=== PATIENT | male | born 1970 | race Caucasian/White ===

== ENCOUNTER 2021-02-21 23:59 | Emergency (ER) | payer MEDICARE, MEDICAID, SELFPAY ==
--- NOTE | 2021-02-22 00:11 | ECG_ITS ---
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 Measurements Intervals Tiller Rate: 70 P: 16 UT: 148 QRS: -9 QRSD: 93 T: 31 QT: 350 QTc: 378 Interpretive Statements SINUS RHYTHM WITH OCCASIONAL VENTRICULAR PREMATURE COMPLEXES NONSPECIFIC T-WAVE ABNORMALITY No previous ECG available for comparison Electronically Signed On 02-22-2021 10:05:59 CDT by Leena Clifton M.D. [id number]
[2021-02-22 00:22] VITALS: BP 134/70; PULSE 68; RESP 18; TEMP 36.7; O2SAT 98; BMI 37.2
--- NOTE | 2021-02-22 00:25 | XRR_ITS ---
PROCEDURE INFORMATION: Exam: XR Chest Exam date and time: 02/22/2021 12:25 AM Age: 50 years old Clinical indication: Other: Overdose; Additional info: Od TECHNIQUE: Imaging protocol: XR of the chest. Views: 1 view. COMPARISON: No relevant prior studies available. FINDINGS: Lungs: Unremarkable. No consolidation. Pleural spaces: Unremarkable. No pleural effusion. No pneumothorax. Heart/Mediastinum: Unremarkable. No cardiomegaly. Bones/joints: Unremarkable. XR/XR chest 1V portable [id number] IMPRESSION: No acute findings.
--- NOTE | 2021-02-22 00:28 | W.ED.PSYCH ---
Documented by User: Caprice Amin MD 02/22/21 05:30 HPI - Psych General: Chief Complaint: Psychiatric Symptoms Stated Complaint: DRANK FLUID CLEANING Time Seen by Provider: 02/22/21 00:12 Source: patient and EMS Mode of arrival: EMS Limitations: no limitations History of Present Illness: HPI Narrative: 50-year-old male is here from group home has had a history of a stroke. He states that he is missing his and has not seen her in quite some time and drank bleach 2 hours ago an attempt to kill himself. He denies any shortness of breath. He has no salazar to his mouth or throat. He states that he is just very depressed and suicidal. Patient was sent here for psychiatric placement. He denies any other attempts recently. Associated symptoms: Reports suicidal ideation Review of Systems Const: Denies: fever(s), chills, body aches or change in appetite Eyes: Denies: blurry vision or eye discomfort ENMT: Denies: throat pain or dental pain Card: Denies: chest pain Resp: Denies: dyspnea GI: Denies: abdominal pain, nausea, vomiting or diarrhea : Denies: dysuria Musc: Denies: neck pain or back pain Skin/Breast: Denies: rash Neuro: Denies: headache(s) Psych: Reports: suicidal ideation Misael/Lymph: Denies: easy bruising All/Imm: Denies: urticaria Physical Exam Const: COMMON NORMALS: no acute distress, patient oriented x3 and healthy appearing HENMT: COMMON NORMALS: normocephalic and atraumatic HEAD & SCALP: normocephalic and atraumatic Eye: COMMON NORMALS: Equal, round and reactive pupils present and EOMs intact bilaterally PUPIL: Yes Equal, round and reactive pupils present Neck/C-Spine: COMMON NORMALS: full ROM and supple Chest: COMMONS NORMALS: normal inspection of the chest and normal palpation of entire chest wall Resp: COMMON NORMALS: normal respiratory effort, No retractions, No use of accessory muscles and clear to auscultation bilaterally AUSCULTATION: clear to auscultation bilaterally Cardio: COMMON NORMALS: regular rate, regular rhythm and No murmurs present (Cardio) RATE: regular rate RHYTHM: regular rhythm GI: COMMON NORMALS: Normal to inspection, nondistended, normoactive bowel sounds present, Soft to palpation, non-tender and no masses PALPATION: Yes Soft to palpation Extremity: COMMON NORMALS: normal to inspection and full ROM Neuro: COMMON NORMALS: patient oriented x3, moves all extremities and no focal motor deficits Psych: COMMON NORMALS: mental status grossly normal, Normal thought process present and cooperative THOUGHT PROCESS: Normal thought process present THOUGHT CONTENT: Yes Suicidality present Skin: COMMON NORMALS: no rashes or lesions noted and no wounds GENERAL SKIN EXAM: no rashes or lesions noted Course Vital Signs: Vital signs: Vital Signs Temperature 98 F 02/22/21 14:48 Pulse Rate 83 02/22/21 14:48 Respiratory Rate 16 02/22/21 14:48 Blood Pressure 118/84 02/22/21 14:48 Pulse Oximetry 98 02/22/21 14:48 MDM - Psych MDM Narrative: Medical decision making narrative: Patient presents here with suicidal ideation and did attempt to kill himself by drinking a duct cleaner. He has no signs of overdose no signs of salazar in his mouth his x-ray is normal. Are seeking placement at this time. Patient had been stable while in the ER. Patient's care turned over to Dr. Jacob. Lab Data: Labs: Lab Results 02/22/21 02/22/21 02/22/21 Range/Units 00:23 00:33 00:33 WBC 8.2 (4.0-10.0) 10^3/ uL RBC 4.25 (4.1-5.3) 10^6/u L Hgb 12.6 (11.7-16.6) g/dL Hct 38.2 L (42.0-52.0) % MCV 89.9 (80-94) fL MCH 29.6 (28.0-34.0) pg MCHC 33.0 (30.0-36.0) g/dL RDW 12.2 (12.1-15.1) % Plt Count 233 (130-400) 10^3/c mm MPV 8.7 (7.4-10.4) fL Neut % (Auto) 55.6 % Lymph % (Auto) 27.8 % [place] % (Auto) 12.9 % Eos % (Auto) 2.4 % Baso % (Auto) 0.7 % Neut # (Auto) 4.54 (1.8-7.7) 10^3/u L Lymph # (Auto) 2.3 (0.8-4.8) 10^3/u L [place] # (Auto) 1.1 H (0.2-0.9) 10^3/u L Eos # (Auto) 0.2 (0.0-0.8) 10^3/u L Baso # (Auto) 0.1 (0.0-0.1) 10^3/u L Nucleated RBC % (a uto) 0 % Nucleated RBCs # 0.0 /100WBC Sodium 136 (136-145) mmol/L Potassium 3.6 (3.5-5.1) mmol/L Chloride 100 (98-107) mmol/L Carbon Dioxide 26 (22-29) mmol/L Anion Gap 13.6 (5-19) BUN 20 (6-20) mg/dL Creatinine 1.5 H (0.7-1.2) mg/dL GFR Calculation 49.1 L (90-130) mL/min Glucose 118 H (65-115) mg/dL Calculated Osmolal ity 286 (285-295) mOsm/k g Calcium 9.6 (8.5-10.5) mg/dL Total Bilirubin 0.2 (0.15-1.2) mg/dL AST 13 (0-40) U/L ALT 15 (0-41) U/L Alkaline Phosphata se 72 (40-130) IU/L Total Protein 6.8 (6.6-8.7) g/dL Albumin 4.2 (3.5-5.2) g/dL Globulin 2.6 (1.3-4.6) g/dL Salicylates < 0.3 L (3-10) mg/dL Urine Opiates Scre en Negative (Negative) ng/mL Acetaminophen < 5.0 L (10-30) ug/mL Ur Barbiturates Sc reen Negative (Negative) ng/mL Ur Phencyclidine S crn Negative (Negative) ng/mL Ur Amphetamines Sc reen Negative (Negative) ng/mL U Benzodiazepines Scrn Negative (Negative) ng/mL Urine Cocaine Scre en Negative (Negative) ng/mL U Marijuana (THC) Screen Negative (Negative) ng/mL Ethyl Alcohol < 10 (0-10) mg/dL SARS-CoV-2 Ag (Rap id) (Negative) 02/22/21 Range/Units 00:33 WBC (4.0-10.0) 10^3/ uL RBC (4.1-5.3) 10^6/u L Hgb (11.7-16.6) g/dL Hct (42.0-52.0) % MCV (80-94) fL MCH (28.0-34.0) pg MCHC (30.0-36.0) g/dL RDW (12.1-15.1) % Plt Count (130-400) 10^3/c mm MPV (7.4-10.4) fL Neut % (Auto) % Lymph % (Auto) % [place] % (Auto) % Eos % (Auto) % Baso % (Auto) % Neut # (Auto) (1.8-7.7) 10^3/u L Lymph # (Auto) (0.8-4.8) 10^3/u L [place] # (Auto) (0.2-0.9) 10^3/u L Eos # (Auto) (0.0-0.8) 10^3/u L Baso # (Auto) (0.0-0.1) 10^3/u L Nucleated RBC % (a uto) % Nucleated RBCs # /100WBC Sodium (136-145) mmol/L Potassium (3.5-5.1) mmol/L Chloride (98-107) mmol/L Carbon Dioxide (22-29) mmol/L Anion Gap (5-19) BUN (6-20) mg/dL Creatinine (0.7-1.2) mg/dL GFR Calculation (90-130) mL/min Glucose (65-115) mg/dL Calculated Osmolal ity (285-295) mOsm/k g Calcium (8.5-10.5) mg/dL Total Bilirubin (0.15-1.2) mg/dL AST (0-40) U/L ALT (0-41) U/L Alkaline Phosphata se (40-130) IU/L Total Protein (6.6-8.7) g/dL Albumin (3.5-5.2) g/dL Globulin (1.3-4.6) g/dL Salicylates (3-10) mg/dL Urine Opiates Scre en (Negative) ng/mL Acetaminophen (10-30) ug/mL Ur Barbiturates Sc reen (Negative) ng/mL Ur Phencyclidine S crn (Negative) ng/mL Ur Amphetamines Sc reen (Negative) ng/mL U Benzodiazepines Scrn (Negative) ng/mL Urine Cocaine Scre en (Negative) ng/mL U Marijuana (THC) Screen (Negative) ng/mL Ethyl Alcohol (0-10) mg/dL SARS-CoV-2 Ag (Rap id) Negative (Negative) EKG Data^: EKG 1: Attestation: I personally reviewed and interpreted this EKG as follows: EKG interpretation date: 02/22/21 EKG interpretation time: 03:00 Interpretation: nsr hr [address] or t wave abnormalities qrs 93 qtc 371 Discharge Plan Discharge Patient Disposition: Xfer Psychiatric Hosp Clinical Impression: Suicidal ideation Condition: Stable Sign Out Sign Out Data: Patient Sign Out occurred on 02/22/21 at 05:58. Patient's care was discussed, and care was transferred from to Kenji Soto DO. Coding Level of Care Code ED Assembler Lat[employer] for Chg Fwd Exam Comprehensive Documented by User: Kenji Soto DO 02/22/21 15:18 HPI - Psych General: Chief Complaint: Psychiatric Symptoms Stated Complaint: DRANK FLUID CLEANING Time Seen by Provider: 02/22/21 00:12 Course Vital Signs: Vital signs: Vital Signs Temperature 98 F 02/22/21 14:48 Pulse Rate 83 02/22/21 14:48 Respiratory Rate 16 02/22/21 14:48 Blood Pressure 118/84 02/22/21 14:48 Pulse Oximetry 98 02/22/21 14:48 MDM - Psych MDM Narrative: Medical decision making narrative: Care assumed from Dr. Poole patient remained stable Dr. Gonzalez has seen the patient [facility] has excepted will transfer him. He is being transferred because medically he is not stable enough for our psychiatric floor he will need some assistance to the level of essentially a geriatric patient which is why he is at the group home. I have discussed with receiving facility they are geriatric so they are willing to take him on to these premises. See please see Dr. Gonzalez's notes. Lab Data: Labs: Lab Results 02/22/21 02/22/21 02/22/21 Range/Units 00:23 00:33 00:33 WBC 8.2 (4.0-10.0) 10^3/ uL RBC 4.25 (4.1-5.3) 10^6/u L Hgb 12.6 (11.7-16.6) g/dL Hct 38.2 L (42.0-52.0) % MCV 89.9 (80-94) fL MCH 29.6 (28.0-34.0) pg MCHC 33.0 (30.0-36.0) g/dL RDW 12.2 (12.1-15.1) % Plt Count 233 (130-400) 10^3/c mm MPV 8.7 (7.4-10.4) fL Neut % (Auto) 55.6 % Lymph % (Auto) 27.8 % [place] % (Auto) 12.9 % Eos % (Auto) 2.4 % Baso % (Auto) 0.7 % Neut # (Auto) 4.54 (1.8-7.7) 10^3/u L Lymph # (Auto) 2.3 (0.8-4.8) 10^3/u L [place] # (Auto) 1.1 H (0.2-0.9) 10^3/u L Eos # (Auto) 0.2 (0.0-0.8) 10^3/u L Baso # (Auto) 0.1 (0.0-0.1) 10^3/u L Nucleated RBC % (a uto) 0 % Nucleated RBCs # 0.0 /100WBC Sodium 136 (136-145) mmol/L Potassium 3.6 (3.5-5.1) mmol/L Chloride 100 (98-107) mmol/L Carbon Dioxide 26 (22-29) mmol/L Anion Gap 13.6 (5-19) BUN 20 (6-20) mg/dL Creatinine 1.5 H (0.7-1.2) mg/dL GFR Calculation 49.1 L (90-130) mL/min Glucose 118 H (65-115) mg/dL Calculated Osmolal ity 286 (285-295) mOsm/k g Calcium 9.6 (8.5-10.5) mg/dL Total Bilirubin 0.2 (0.15-1.2) mg/dL AST 13 (0-40) U/L ALT 15 (0-41) U/L Alkaline Phosphata se 72 (40-130) IU/L Total Protein 6.8 (6.6-8.7) g/dL Albumin 4.2 (3.5-5.2) g/dL Globulin 2.6 (1.3-4.6) g/dL Salicylates < 0.3 L (3-10) mg/dL Urine Opiates Scre en Negative (Negative) ng/mL Acetaminophen < 5.0 L (10-30) ug/mL Ur Barbiturates Sc reen Negative (Negative) ng/mL Ur Phencyclidine S crn Negative (Negative) ng/mL Ur Amphetamines Sc reen Negative (Negative) ng/mL U Benzodiazepines Scrn Negative (Negative) ng/mL Urine Cocaine Scre en Negative (Negative) ng/mL U Marijuana (THC) Screen Negative (Negative) ng/mL Ethyl Alcohol < 10 (0-10) mg/dL SARS-CoV-2 Ag (Rap id) (Negative) 02/22/21 Range/Units 00:33 WBC (4.0-10.0) 10^3/ uL RBC (4.1-5.3) 10^6/u L Hgb (11.7-16.6) g/dL Hct (42.0-52.0) % MCV (80-94) fL MCH (28.0-34.0) pg MCHC (30.0-36.0) g/dL RDW (12.1-15.1) % Plt Count (130-400) 10^3/c mm MPV (7.4-10.4) fL Neut % (Auto) % Lymph % (Auto) % [place] % (Auto) % Eos % (Auto) % Baso % (Auto) % Neut # (Auto) (1.8-7.7) 10^3/u L Lymph # (Auto) (0.8-4.8) 10^3/u L [place] # (Auto) (0.2-0.9) 10^3/u L Eos # (Auto) (0.0-0.8) 10^3/u L Baso # (Auto) (0.0-0.1) 10^3/u L Nucleated RBC % (a uto) % Nucleated RBCs # /100WBC Sodium (136-145) mmol/L Potassium (3.5-5.1) mmol/L Chloride (98-107) mmol/L Carbon Dioxide (22-29) mmol/L Anion Gap (5-19) BUN (6-20) mg/dL Creatinine (0.7-1.2) mg/dL GFR Calculation (90-130) mL/min Glucose (65-115) mg/dL Calculated Osmolal ity (285-295) mOsm/k g Calcium (8.5-10.5) mg/dL Total Bilirubin (0.15-1.2) mg/dL AST (0-40) U/L ALT (0-41) U/L Alkaline Phosphata se (40-130) IU/L Total Protein (6.6-8.7) g/dL Albumin (3.5-5.2) g/dL Globulin (1.3-4.6) g/dL Salicylates (3-10) mg/dL Urine Opiates Scre en (Negative) ng/mL Acetaminophen (10-30) ug/mL Ur Barbiturates Sc reen (Negative) ng/mL Ur Phencyclidine S crn (Negative) ng/mL Ur Amphetamines Sc reen (Negative) ng/mL U Benzodiazepines Scrn (Negative) ng/mL Urine Cocaine Scre en (Negative) ng/mL U Marijuana (THC) Screen (Negative) ng/mL Ethyl Alcohol (0-10) mg/dL SARS-CoV-2 Ag (Rap id) Negative (Negative) Discharge Plan Discharge Patient Disposition: Xfer Psychiatric Hosp Clinical Impression: Suicidal ideation Condition: Stable Sign Out Sign Out Data: Patient Sign Out occurred on 02/22/21 at 05:58. Patient's care was discussed, and care was transferred from to Kenji Soto DO. Coding Level of Care Code ED Assembler [employer] for g Fwd Exam Comprehensive
[2021-02-22 00:36] LABS: Basophils # 0.1 10^3/uL (0.0-0.1); Basophils % 0.7 %; Eosinophils # 0.2 10^3/uL (0.0-0.8); Eosinophils % 2.4 %; Hematocrit 38.2 % (42.0-52.0); Hemoglobin 12.6 g/dL (11.7-16.6); Lymphocytes # 2.3 10^3/uL (0.8-4.8); Lymphocytes % 27.8 %; Mean Corpuscular Hemoglobin 29.6 pg (28.0-34.0); Mean Corpuscular Volume 89.9 fL (80-94); Mean Platelet Volume 8.7 fL (7.4-10.4); Monocytes # 1.1 10^3/uL (0.2-0.9); Monocytes % 12.9 %; Neutrophils # 4.54 10^3/uL (1.8-7.7); Neutrophils % 55.6 %; Nucleated Red Blood Cells % 0 %; Platelet Count 233 10^3/cmm (130-400); Red Blood Count 4.25 10^6/uL (4.1-5.3); Red Cell Distribution Width 12.2 % (12.1-15.1); White Blood Count 8.2 10^3/uL (4.0-10.0)
[2021-02-22 00:45] LABS: Amphetamines Screen Urine Negative (Negative); Barbiturates Screen Urine Negative (Negative); Benzodiazepines Screen Urine Negative (Negative); Cocaine Screen Urine Negative (Negative); Opiate Screen Urine Negative (Negative); PCP Screen Urine Negative (Negative); THC Screen Urine Negative (Negative)
[2021-02-22 00:53] LABS: Acetaminophen < 5.0 ug/mL (10-30); Alanine Aminotransferase 15 U/L (0-41); Albumin Level 4.2 g/dL (3.5-5.2); Alcohol Level < 10 mg/dL (0-10); Alkaline Phosphatase 72 IU/L (40-130); Anion Gap 13.6 (5-19); Aspartate Amino Transferase 13 U/L (0-40); Blood Urea Nitrogen 20 mg/dL (6-20); Calcium 9.6 mg/dL (8.5-10.5); Carbon Dioxide 26 mmol/L (22-29); Chloride 100 mmol/L (98-107); Globulin 2.6 g/dL (1.3-4.6); Glomerular Filtration Rate 49.1 mL/min (90-130); Glucose 118 mg/dL (65-115); Osmolality Calculated 286 mOsm/kg (285-295); Potassium 3.6 mmol/L (3.5-5.1); Salicylate < 0.3 mg/dL (3-10); Sodium 136 mmol/L (136-145); Total Bilirubin 0.2 mg/dL (0.15-1.2); Total Protein 6.8 g/dL (6.6-8.7)
[2021-02-22 01:38] LABS: SARS Covid-2 Antigen Negative (Negative)
[2021-02-22 04:40] VITALS: BP 139/90; PULSE 73; RESP 19; O2SAT 97
[2021-02-22 07:15] VITALS: BP 141/61; PULSE 114; RESP 24; O2SAT 94
--- NOTE | 2021-02-22 07:35 | PC.NURSE ---
Back and Leg pain Patient states experiencing pain in generalized back and legs. Rated 8 out of 10. Upon inquiry, patient has stated this is not a new pain, occurs chronically. To alleviate, helped change position in chair, room lights were turned off, and patient resting with television on. Nurse notified.
--- NOTE | 2021-02-22 08:09 | PC.NURSE ---
Patient eating breakfast
--- NOTE | 2021-02-22 08:43 | XR_ITS ---
WS: [id number] Exam: XR chest 1V portable [id number] Date/Time of Exam: 02/22/2021 8:43 AM Reason For Exam: dyspnea/cough Comparison 02/22/2021. Findings: The lungs are clear and fully expanded. Costophrenic angles are sharp. No infiltrates. Bronchovascula r relief appears normal. Cardiac silhouette is unremarkable. Bony elements are intact. XR/XR chest 1V portable [id number] IMPRESSION: Unremarkable chest radiograph.
--- NOTE | 2021-02-22 09:23 | P.CONIM_ITS ---
Providers/Reason for Consult Consulting Physican/Specialty*: Amber Gonzalez DO Reason for Consult*: Suicidal gesture/drinking bleach Requesting Physcian: Dr. Soto/ED Psych Consult HPI History of Present Illness Walt Espinoza is a 50 year old male with unclear past psychiatric history but reports that he has been having depressive symptoms since his stroke presented to the emergency department after making a suicidal gesture of drinking bleach. Patient states that he is not happy being at his current alf over the past 3 weeks and states that he has been for multiple other nursing homes with similar gestures as well as past attempts to run away from alf. Patient continues report depressive symptoms, low mood, decreased energy and interest in his usual activities, states that he misses his . He reports that these depressive symptoms have been going on since his stroke and denies any previous psychiatric history before having a stroke. He reports making multiple past suicidal gestures, states approximately 5-6 times, but reports not having any actual intent of wanting to end his life. He currently denies any suicidal ideation or thoughts about self-harm. He denies past manic or hypomanic episodes. He denies any perceptual disturbances, no auditory or visual hallucinations. He reports occasional transient anxiety symptoms related to ongoing life stressors, medical stressors, denies any recent panic symptoms or panic attacks. Psychiatric review of systems is otherwise negative. Patient states that he is able to get up and move around but requires significant assistance with activities of daily living Review of Systems General: Reports: 10 or more systems reviewed and unremarkable except in HPI and below [facility] NPU Other Psychiatric History: Other Psychiatric History: Denies any past psychiatric treatment by psychiatrist Denies any history of psychiatric hospitalizations Per HPI above, reports multiple past gestures but denies any active intent or plan of wanting to end his life Mental Status Exam MSE Comments: Lying in bed, good eye contact, unshaven, disheveled, unkempt Psychomotor activity is somewhat decreased, no agitation Speech is slow, low volume, fair articulation, not pressured I feel depressed, congruent affect, constricted, not labile Alert and oriented to person, place, time, situation Memory and concentration appear to be intact per interview Intellectual functioning appears to be average based on vocabulary, interview Thought process, linear but brief, no flight of ideas, no looseness of associations Thought content, no delusions, no hallucinations, no suicidal or homicidal ideation Insight and judgment appear to be fair Vitals/I&O/Wt Last Vital Signs Temp 98.1 F 02/22/21 00:22 Pulse 114 H 02/22/21 07:15 Resp 24 H 02/22/21 07:15 BP 141/61 02/22/21 07:15 Pulse Ox 94 02/22/21 07:15 Weight last 48 hrs Weight 114.305 kg A&P Assessment and plan (1) Suicidal ideation: Status: Acute (2) Suicide gesture: Status: Acute Qualifiers: Encounter type: subsequent encounter Qualified Code(s): X83.8XXD - Intentional self-harm by other specified means, subsequent encounter (3) Depressive disorder: Status: Acute Additional A&P Information 50-year-old male with unclear past psychiatric history but reports ongoing depressive symptoms related to ongoing life stressors, medical stressors with multiple past suicidal gestures with most recent gesture being swallowing bleach. Patient would benefit from inpatient psychiatric treatment for medication stabilization as well as coordination for post discharge therapy targeting more adaptive coping strategies. RECOMMEND inpatient psychiatric treatment, patient will likely need geriatric psychiatry unit given his requirement for assistance with ADLs CONTINUE home medication Psychiatry will sign off at this time Attestations NPU Medical Necessity Statement*: N/A Time Spent in Patient Care: Greater than 35 minutes (>than 50% of time spent in counselling and/or direct pt care on unit) . Coding Level of Care Code Acute Electrocardiographic Technician for Dahlia Edmondson Diagnoses Suicidal ideation R45.851 Suicide gesture X83.8XXD Encounter type: subsequent encounter Depressive disorder F32.9
[2021-02-22] MEDS: acetaminophen 325 mg Tablet 650 MG PO (10:47)
[2021-02-22 12:32] VITALS: BP 118/84; PULSE 83; RESP 16; TEMP 36.6; O2SAT 98
[2021-02-22 12:37] VITALS: BP 127/57; PULSE 74; RESP 14; O2SAT 96
[2021-02-22 14:48] VITALS: BP 118/84; PULSE 83; RESP 16; TEMP 36.6; O2SAT 98
--- NOTE | 2021-03-03 14:42 | PC.SOCIAL ---
Notified Karol at [facility] that patient was sent to [facility] at [facility] and provided the number.
== END 2021-02-22 16:54 ==
PROVIDERS: Emergency Medicine; Emergency Provider Family Medicine
DX: R45.851 Suicidal ideations (principal)
CPT/HCPCS: 71045; 80053; 80306; 80307; 85025; 87426; 93005; 99284

== ENCOUNTER → 2022-11-14 08:40 | Outpatient (BNVA) | payer MEDICARE, MEDICAID, SELFPAY | PROVIDERS: Visit Provider Podiatrist Foot & Ankle Surgery | DX: E11.42 Type 2 diabetes mellitus with diabetic polyneuropathy (principal); L84 Corns and callosities; M21.41 Flat foot [pes planus] (acquired), right foot; M21.42 Flat foot [pes planus] (acquired), left foot; L60.3 Nail dystrophy | CPT/HCPCS: 73630; 99204 ==

== ENCOUNTER → 2023-01-16 08:35 | Outpatient (BNVA) | payer MEDICARE, MEDICAID, SELFPAY | PROVIDERS: PCP Family Medicine; Visit Provider Podiatrist Foot & Ankle Surgery | DX: I73.9 Peripheral vascular disease, unspecified (principal); E11.42 Type 2 diabetes mellitus with diabetic polyneuropathy; L84 Corns and callosities; L60.3 Nail dystrophy; M21.41 Flat foot [pes planus] (acquired), right foot; M21.42 Flat foot [pes planus] (acquired), left foot; E11.621 Type 2 diabetes mellitus with foot ulcer; L97.511 Non-pressure chronic ulcer of other part of right foot limited to breakdown of skin; L97.521 Non-pressure chronic ulcer of other part of left foot limited to breakdown of skin; I87.2 Venous insufficiency (chronic) (peripheral); L03.115 Cellulitis of right lower limb; L03.116 Cellulitis of left lower limb | CPT/HCPCS: 11055; 11721; 29580 ==

== ENCOUNTER 2023-03-10 08:35 | Outpatient (CLI) | payer MEDICARE, MEDICAID, SELFPAY ==
--- NOTE | 2023-03-10 08:49 | FL_ITS ---
WS: [id number] Exam: FL barium swallow modifd [id number] Date/Time of Exam: 03/10/2023 8:58 AM Reason For Exam: Other dysphagia Fluoroscopy time: 4min [id number] minutes # of spot films: Modified barium swallow was performed in conjunction with the speech therapy service. Swallowing function at the level of the oropharynx was normal. There was mild penetration into the la ryngeal inlet when the patient ingested thin liquid barium solution and solid barium mixture foodstuf fs. No aspiration was demonstrated. The patient swallowed a barium tablet without difficulty or compl ication. FL/FL barium swallow modifd [id number] IMPRESSION: 1. The patient experienced mild penetration into the laryngeal inlet when swall owing thin liquid barium and solid barium mixture foodstuffs. No aspiration was demonstrated. A separate report and recommendations will follow from the speech therapy servi ce.
== END 2023-03-10 08:36 | disposition home or self-care (01) ==
PROVIDERS: PCP Family Medicine; Visit Provider Family Medicine
DX: R13.19 Other dysphagia (principal)
CPT/HCPCS: 74230; 92611

== ENCOUNTER → 2023-04-17 08:07 | Outpatient (BNVA) | payer MEDICARE, MEDICAID, SELFPAY | PROVIDERS: PCP Family Medicine; Visit Provider Podiatrist Foot & Ankle Surgery | DX: E11.42 Type 2 diabetes mellitus with diabetic polyneuropathy; L84 Corns and callosities; M21.41 Flat foot [pes planus] (acquired), right foot; M21.42 Flat foot [pes planus] (acquired), left foot; L60.3 Nail dystrophy; I73.9 Peripheral vascular disease, unspecified; L97.522 Non-pressure chronic ulcer of other part of left foot with fat layer exposed; L97.512 Non-pressure chronic ulcer of other part of right foot with fat layer exposed; E11.621 Type 2 diabetes mellitus with foot ulcer | CPT/HCPCS: 11721; 99214 ==

== ENCOUNTER → 2023-05-10 09:16 | Outpatient (BNVA) | payer MEDICARE, MEDICAID, SELFPAY | PROVIDERS: PCP Family Medicine; Visit Provider Podiatrist Foot & Ankle Surgery | DX: E11.42 Type 2 diabetes mellitus with diabetic polyneuropathy (principal); M21.41 Flat foot [pes planus] (acquired), right foot; M21.42 Flat foot [pes planus] (acquired), left foot; I73.9 Peripheral vascular disease, unspecified; L97.522 Non-pressure chronic ulcer of other part of left foot with fat layer exposed; L97.512 Non-pressure chronic ulcer of other part of right foot with fat layer exposed; E11.621 Type 2 diabetes mellitus with foot ulcer | CPT/HCPCS: 99214 ==

== ENCOUNTER → 2023-06-13 08:57 | Outpatient (BNVA) | payer MEDICARE, MEDICAID, SELFPAY | PROVIDERS: PCP Family Medicine; Visit Provider Podiatrist Foot & Ankle Surgery | DX: E11.42 Type 2 diabetes mellitus with diabetic polyneuropathy (principal); M21.41 Flat foot [pes planus] (acquired), right foot; M21.42 Flat foot [pes planus] (acquired), left foot; I73.9 Peripheral vascular disease, unspecified; L97.522 Non-pressure chronic ulcer of other part of left foot with fat layer exposed; L97.512 Non-pressure chronic ulcer of other part of right foot with fat layer exposed; E11.621 Type 2 diabetes mellitus with foot ulcer | CPT/HCPCS: 99214 ==

== ENCOUNTER 2023-07-02 22:33 | Emergency (ER) | payer MEDICARE, MEDICAID, SELFPAY ==
[2023-07-02 22:34] VITALS: BP 148/100; PULSE 98; RESP 20; TEMP 36.7; O2SAT 98; BMI 44.4
[2023-07-02 23:33] LABS: Bilirubin Urine Neg (Negative); Blood Urine 2+ (Negative); Glucose Urine UA 4+ (Normal); Ketones Urine Negative (Negative); Nitrate Urine Positive (Negative); Protein Urine 1+ (Negative); Specific Gravity, Urine 1.015 (1.005-1.030); Urine Appearance Clear (CLEAR); Urine Color Colorless (Yellow); Urobilinogen Urine Neg (Negative); pH Urine 7 (5-7)
[2023-07-02 23:34] LABS: Add Urine Culture? Yes; Add Urine Microscopic? YES; Bacteria Urine 1+ /hpf; Leukocyte Esterase Urine 1+ (Negative); RBC Urine 0-4 /hpf (0-2); WBC Urine RARE /hpf (0-5)
[2023-07-02 23:35] LABS: Amphetamines Screen Urine Negative (Negative); Barbiturates Screen Urine Negative (Negative); Benzodiazepines Screen Urine Negative (Negative); Cocaine Screen Urine Negative (Negative); Opiate Screen Urine Negative (Negative); PCP Screen Urine Negative (Negative); THC Screen Urine Negative (Negative)
[2023-07-02 23:59] LABS: Basophils # 0.1 10^3/uL (0.0-0.1); Basophils % 0.6 %; Eosinophils # 0.3 10^3/uL (0.0-0.8); Eosinophils % 3.1 %; Hematocrit 38.4 % (37-53); Lymphocytes # 1.8 10^3/uL (0.8-4.8); Lymphocytes % 17.1 %; Mean Corpuscular Hemoglobin 28.4 pg (27-33); Mean Corpuscular Volume 88.7 fl (82-101); Mean Platelet Volume 8.6 fL (7.4-10.4); Monocytes # 1.1 10^3/uL (0.2-0.9); Monocytes % 10.5 %; Neutrophils # 7.09 10^3/uL (1.8-7.7); Neutrophils % 67.6 %; Nucleated Red Blood Cells % 0 %; Platelet Count 272 10^3/cmm (157-399); Red Blood Count 4.33 10^6/uL (3.85-5.65); Red Cell Distribution Width 12.5 % (12.1-15.1); White Blood Count 10.49 10^3/uL (3.29-11.43)
[2023-07-03 00:30] LABS: Alanine Aminotransferase 29 U/L (0-41); Albumin Level 4.2 g/dL (3.5-5.2); Alkaline Phosphatase 92 U/L (40-130); Anion Gap 13.5 (5-19); Aspartate Amino Transferase 22 U/L (0-40); Blood Urea Nitrogen 26 mg/dL (6-20); Calcium 10.6 mg/dL (8.5-10.5); Carbon Dioxide 30 mmol/L (22-29); Chloride 93 mmol/L (98-107); Globulin 3.4 g/dL (1.3-4.6); Glomerular Filtration Rate 48.8 mL/min (90-130); Glucose 340 mg/dL (65-115); Osmolality Calculated 294 mOsm/kg (285-295); Potassium 3.5 mmol/L (3.5-5.1); Sodium 133 mmol/L (136-145); Total Bilirubin 0.3 mg/dL (0.15-1.2); Total Protein 7.6 g/dL (6.6-8.7)
[2023-07-03 00:33] LABS: Acetaminophen < 5.0 ug/mL (10-30); Alcohol Level < 10 mg/dL (0-10); Salicylate < 0.3 mg/dL (3-10)
--- NOTE | 2023-07-03 01:27 | ED.C_ITS ---
Documented by User: Heath Gio Amauri, 07/03/23 05:50 HPI - Psych General: Chief Complaint: Psychiatric Symptoms Stated Complaint: SI Time Seen by Provider: 07/02/23 22:38 History of Present Illness: 52-year-old male with a history of diabetes, and CVA with ongoing deficits. He resides in a retirement due to his CVA. He has an unclear psychiatric history. He does relate that he has attempted to harm himself multiple times, mostly by overdosing or drinking substances. In the retirement this evening, he attempted to harm himself by drinking a building cleaner. He relates that he is still having suicidal thoughts. He states that he feels this way because he believes his is cheating on him. Review of Systems Const: Denies: fever(s) ENMT: Denies: throat pain Card: Denies: chest pain or palpitations Resp: Denies: dyspnea or productive cough GI: Denies: abdominal pain or vomiting Physical Exam Const: COMMON NORMALS: no acute distress GENERAL APPEARANCE: cooperative and frail appearing (mildly); not ill appearing HENMT: COMMON NORMALS: normocephalic, atraumatic and Normal external nose present HEAD & SCALP: normocephalic and atraumatic FACE & SINUS: normal facial exam and face symmetric NOSE: Normal external nose present Eye: COMMON NORMALS: Equal, round and reactive pupils present and EOMs intact bilaterally PUPIL: Yes Equal, round and reactive pupils present Neck/C-Spine: GENERAL: Yes trachea midline Chest: CHEST: Yes Symmetrical chest wall rise Resp: COMMON NORMALS: normal respiratory effort, No retractions, No use of accessory muscles and clear to auscultation bilaterally AUSCULTATION: clear to auscultation bilaterally Cardio: COMMON NORMALS: regular rate and regular rhythm RATE: regular rate RHYTHM: regular rhythm GI: COMMON NORMALS: Normal to inspection, nondistended, normoactive bowel sounds present Extremity: COMMON NORMALS: no pedal edema Neuro: SARAH COMA SCALE: document GCS findings Sarah coma scale eye opening: Spontaneous [place] coma scale verbal response: Orientated Sarah coma scale motor response: Obey commands [place] coma scale total score: 15 SENSORY EXAM: Yes extremities (intact) Psych: COMMON NORMALS: speech normal SPEECH: Yes normal speech Skin: COMMON NORMALS: no rashes or lesions noted GENERAL SKIN EXAM: no rashes or lesions noted Course Vital Signs: Vital signs: Vital Signs Temperature 98.3 F 07/03/23 05:59 Pulse Rate 93 07/03/23 05:59 Respiratory Rate 16 07/03/23 05:59 Blood Pressure 176/73 07/03/23 05:59 Pulse Oximetry 96 07/03/23 05:59 Oxygen Delivery Me thod Room Air 07/02/23 22:34 MDM - Psych Medical Decision Making On my read interview, the patient is still having suicidal ideation. He tells me I need help . Medically, he is stable. He does have a nitrate positive urine, but only rare WBCs, indicative of chronic colonization but not active infection. His urine drug screen and alcohol are negative. His other laboratory shows a potassium of 3.5, with a creatinine of 1.5. Other indices are not remarkable. Although only 52 years of age, the patient will require a higher level of medical care than normal neuropsychiatric unit because of his prior stroke sequelae. He has gone to geriatric psychiatric units prior because of this. We do not have any beds available in our neuropsychiatric unit, and are not a geriatric psychiatry facility. We will attempt transfer to a geriatric psychiatry facility as appropriate. Medically he is stable otherwise. Poison control been contacted, and the building cleaner is actually nontoxic and of no harm to the patient. Lab Data 07/02/23 23:41 07/02/23 23:41 Laboratory Results WBC 10.49 10^3/uL (3.29-11.43) 07/02/23 23:41 RBC 4.33 10^6/uL (3.85-5.65) 07/02/23 23:41 Hgb 12.30 g/dL (11.27-16.99) 07/02/23 23:41 Hct 38.4 % (37-53) 07/02/23 23:41 MCV 88.7 fl (82-101) 07/02/23 23:41 MCH 28.4 pg (27-33) 07/02/23 23:41 MCHC 32.0 g/dL (30-55) 07/02/23 23:41 RDW 12.5 % (12.1-15.1) 07/02/23 23:41 Plt Count 272 10^3/cmm (157-399) 07/02/23 23:41 MPV 8.6 fL (7.4-10.4) 07/02/23 23:41 Neut % (Auto) 67.6 % 07/02/23 23:41 Lymph % (Auto) 17.1 % 07/02/23 23:41 [place] % (Auto) 10.5 % 07/02/23 23:41 Eos % (Auto) 3.1 % 07/02/23 23:41 Baso % (Auto) 0.6 % 07/02/23 23:41 Neut # (Auto) 7.09 10^3/uL (1.8-7.7) 07/02/23 23:41 Lymph # (Auto) 1.8 10^3/uL (0.8-4.8) 07/02/23 23:41 [place] # (Auto) 1.1 10^3/uL (0.2-0.9) H 07/02/23 23:41 Eos # (Auto) 0.3 10^3/uL (0.0-0.8) 07/02/23 23:41 Baso # (Auto) 0.1 10^3/uL (0.0-0.1) 07/02/23 23:41 Nucleated RBC % (auto) 0 % 07/02/23 23:41 Nucleated RBCs # 0.0 /100WBC 07/02/23 23:41 Sodium 133 mmol/L (136-145) L 07/02/23 23:41 Potassium 3.5 mmol/L (3.5-5.1) 07/02/23 23:41 Chloride 93 mmol/L (98-107) L 07/02/23 23:41 Carbon Dioxide 30 mmol/L (22-29) H 07/02/23 23:41 Anion Gap 13.5 (5-19) 07/02/23 23:41 BUN 26 mg/dL (6-20) H 07/02/23 23:41 Creatinine 1.5 mg/dL (0.7-1.2) H 07/02/23 23:41 GFR Calculation 48.8 mL/min (90-130) L 07/02/23 23:41 Glucose 340 mg/dL (65-115) H 07/02/23 23:41 Calculated Osmolality 294 mOsm/kg (285-295) 07/02/23 23:41 Calcium 10.6 mg/dL (8.5-10.5) H 07/02/23 23:41 Total Bilirubin 0.3 mg/dL (0.15-1.2) 07/02/23 23:41 AST 22 U/L (0-40) 07/02/23 23:41 ALT 29 U/L (0-41) 07/02/23 23:41 Alkaline Phosphatase 92 U/L (40-130) 07/02/23 23:41 Total Protein 7.6 g/dL (6.6-8.7) 07/02/23 23:41 Albumin 4.2 g/dL (3.5-5.2) 07/02/23 23:41 Globulin 3.4 g/dL (1.3-4.6) 07/02/23 23:41 Urine Color Colorless (Yellow) 07/02/23 22:45 Urine Appearance Clear (CLEAR) 07/02/23 22:45 Urine pH 7 (5-7) 07/02/23 22:45 Ur Specific [place] 1.015 (1.005-1.030) 07/02/23 22:45 Urine Protein 1+ (Negative) H 07/02/23 22:45 Urine Glucose (UA) 4+ (Normal) H 07/02/23 22:45 Urine Ketones Negative (Negative) 07/02/23:45 Urine Blood 2+ (Negative) H 07/02/23 22:45 Urine Nitrate Positive (Negative) H 07/02/23 22:45 Urine Bilirubin Neg (Negative) 07/02/23 22:45 Urine Urobilinogen Neg mg/dL (Negative) 07/02/23 22:45 Ur Leukocyte Esterase 1+ (Negative) H 07/02/23 22:45 Urine RBC 0-4 /hpf (0-2) H 07/02/23 22:45 Urine WBC Rare /hpf (0-5) 07/02/23 22:45 Ur Squamous Epith Cells None /hpf (0-5) 07/02/23:45 Amorphous Sediment Not Reportable 07/02/23 22:45 Urine Bacteria 1+ /hpf (NONE) H 07/02/23 22:45 Salicylates < 0.3 mg/dL (3-10) L 07/02/23 23:41 Urine Opiates Screen Negative ng/mL (Negative) 10/22/23 22:45 Acetaminophen < 5.0 ug/mL (10-30) L 07/02/23 23:41 Ur Barbiturates Screen Negative ng/mL (Negative) 07/02/23 22:45 Ur Phencyclidine Scrn Negative ng/mL (Negative) 07/02/23 22:45 Ur Amphetamines Screen Negative ng/mL (Negative) 07/02/23 22:45 U Benzodiazepines Scrn Negative ng/mL (Negative) 07/02/23 22:45 Urine Cocaine Screen Negative ng/mL (Negative) 07/02/23 22:45 U Marijuana (THC) Screen Negative ng/mL (Negative) 07/02/23 22:45 Ethyl Alcohol < 10 mg/dL (0-10) 07/02/23 23:41 No radiology studies performed this visit Discharge Plan Discharge Patient Disposition: Xfer Psychiatric Hosp Clinical Impression: Suicide gesture Condition: Stable Referrals: Pranav Adams MD [Primary Care Provider] - Sign Out Sign Out Data: Patient Sign Out occurred on 07/03/23 at 05:57. Patient's care was discussed, and care was transferred from to Kenji Soto DO. Coding Level of Care Code ED Certified Addiction Counselor for Chg Fwd Documented by User: Kenji Soto DO 07/03/23 13:35 HPI - Psych General: Chief Complaint: Psychiatric Symptoms Stated Complaint: SI Time Seen by Provider: 07/02/23 22:38 Physical Exam Neuro: SARAH COMA SCALE: document GCS findings [place] coma scale total score: 15 Course Vital Signs: Vital signs: Vital Signs Temperature 98.3 F 07/03/23 05:59 Pulse Rate 93 07/03/23 05:59 Respiratory Rate 16 07/03/23 05:59 Blood Pressure 176/73 07/03/23 05:59 Pulse Oximetry 96 07/03/23 05:59 Oxygen Delivery Me thod Room Air 07/02/23 22:34 MDM - Psych Medical Decision Making On my read interview, the patient is still having suicidal ideation. He tells m e I need help . Medically, he is stable. He does have a nitrate positive urine, but only rare WBCs, indicative of chronic colonization but not active infection. His urine drug screen and alcohol are negative. His other laboratory shows a potassium of 3.5, with a creatinine of 1.5. Other indices are not remarkable. Although only 52 years of age, the patient will require a higher level of medical care than normal neuropsychiatric unit because of his prior stroke sequelae. He has gone to geriatric psychiatric units prior because of this. We do not have any beds available in our neuropsychiatric unit, and are not a geriatric psychiatry facility. We will attempt transfer to a geriatric psychiatry facility as appropriate. Medically he is stable otherwise. Poison control been contacted, and the building cleaner is actually nontoxic and of no harm to the patient. 07/03/2023 [address] Baugh at change of shift. Patient is actually ambulatory Dr. Baugh is initially told that the patient was relying on walker and cane to ambulate. He demonstrates ability to ambulate independently in the department and confirmed with the retirement. Consulted Dr. Galloway he evaluated the p atient he feels patient still does need inpatient care recommends geriatric care because of the the level of the patient's needs based on his previous CVA. at [facility] has agreed to accept the patient on transfer will be transferred via [facility]. Patient Has been well behaved since I assumed care. Differential Diagnosis Likely suicidal ideation Medical Records I reviewed the patient's medical records. Lab Data I reviewed the patient's lab results. 07/02/23 23:41 07/02/23 23:41 Laboratory Results WBC 10.49 10^3/uL (3.29-11.43) 07/02/23 23:41 RBC 4.33 10^6/uL (3.85-5.65) 07/02/23 23:41 Hgb 12.30 g/dL (11.27-16.99) 07/02/23 23:41 Hct 38.4 % (37-53) 07/02/23 23:41 MCV 88.7 fl (82-101) 07/02/23 23:41 MCH 28.4 pg (27-33) 07/02/23 23: MCHC 32.0 g/dL (30-55) 07/02/23 23:41 RDW 12.5 % (12.1-15.1) 07/02/23 23:41 Plt Count 272 10^3/cmm (157-399) 07/02/23 23:41 MPV 8.6 fL (7.4-10.4) 07/02/23 23:41 Neut % (Auto) 67.6 % 07/02/23 23:41 Lymph % (Auto) 17.1 % 07/02/23 23:41 [place] % (Auto) 10.5 % 07/02/23 23:41 Eos % (Auto) 3.1 % 07/02/23 23:41 Baso % (Auto) 0.6 % 07/02/23 23:41 Neut # (Auto) 7.09 10^3/uL (1.8-7.7) 07/02/23 23:41 Lymph # (Auto) 1.8 10^3/uL (0.8-4.8) 07/02/23 23:41 [place] # (Auto) 1.1 10^3/uL (0.2-0.9) H 07/02/23 23:41 Eos # (Auto) 0.3 10^3/uL (0.0-0.8) 07/02/23 23:41 Baso # (Auto) 0.1 10^3/uL (0.0-0.1) 07/02/23 23:41 Nucleated RBC % (auto) 0 % 07/02/23 23:41 Nucleated RBCs # 0.0 /100WBC 07/02/23 23:41 Sodium 133 mmol/L (136-145) L 07/02/23 23:41 Potassium 3.5 mmol/L (3.5-5.1) 07/02/23 23:41 Chloride 93 mmol/L (98-107) L 07/02/23 23:41 Carbon Dioxide 30 mmol/L (22-29) H 07/02/23 23:41 Anion Gap 13.5 (5-19) 07/02/23 23:41 BUN 26 mg/dL (6-20) H 07/02/23 23:41 Creatinine 1.5 mg/dL (0.7-1.2) H 07/02/23 23:41 GFR Calculation 48.8 mL/min (90-130) L 07/02/23 23:41 Glucose 340 mg/dL (65-115) H 07/02/23 23:41 Calculated Osmolality 294 mOsm/kg (285-295) 07/02/23 23:41 Calcium 10.6 mg/dL (8.5-10.5) H 07/02/23 23:41 Total Bilirubin 0.3 mg/dL (0.15-1.2) 07/02/23 23:41 AST 22 U/L (0-40) 07/02/23 23:41 ALT 29 U/L (0-41) 07/02/23 23:41 Alkaline Phosphatase 92 U/L (40-130) 07/02/23 23:41 Total Protein 7.6 g/dL (6.6-8.7) 07/02/23 23:41 Albumin 4.2 g/dL (3.5-5.2) 07/02/23 23:41 Globulin 3.4 g/dL (1.3-4.6) 07/02/23 23:41 Urine Color Colorless (Yellow) 07/02/23 22:45 Urine Appearance Clear (CLEAR) 07/02/23 22:45 Urine pH 7 (5-7) 07/02/23 22:45 Ur Specific [place] 1.015 (1.005-1.030) 07/02/23:45 Urine Protein 1+ (Negative) H 07/02/23 22:45 Urine Glucose (UA) 4+ (Normal) H 07/02/23 22:45 Urine Ketones Negative (Negative) 07/02/23:45 Urine Blood 2+ (Negative) H 07/02/23:45 Urine Nitrate Positive (Negative) H 07/02/23 22:45 Urine Bilirubin Neg (Negative) 07/02/23 22:45 Urine Urobilinogen Neg mg/dL (Negative) 07/02/23:45 Ur Leukocyte Esterase 1+ (Negative) H 07/02/23:45 Urine RBC 0-4 /hpf (0-2) H 07/02/23 22:45 Urine WBC Rare /hpf (0-5) 07/02/23 22:45 Ur Squamous Epith Cells None /hpf (0-5) 07/02/23 22:45 Amorphous Sediment Not Reportable 07/02/23 22:45 Urine Bacteria 1+ /hpf (NONE) H 07/02/23 22:45 Salicylates < 0.3 mg/dL (3-10) L 07/02/23 23:41 Urine Opiates Screen Negative ng/mL (Negative) 07/02/23 22:45 Acetaminophen < 5.0 ug/mL (10-30) L 07/02/23 23:41 Ur Barbiturates Screen Negative ng/mL (Negative) 07/02/23 22:45 Ur Phencyclidine Scrn Negative ng/mL (Negative) 07/02/23 22:45 Ur Amphetamines Screen Negative ng/mL (Negative) 07/02/23 22:45 U Benzodiazepines Scrn Negative ng/mL (Negative) 07/02/23 22:45 Urine Cocaine Screen Negative ng/mL (Negative) 07/02/23 22:45 U Marijuana (THC) Screen Negative ng/mL (Negative) 07/02/23 22:45 Ethyl Alcohol < 10 mg/dL (0-10) 07/02/23 23:41 Discharge Plan Discharge Patient Disposition: er Psychiatric Hosp Clinical Impression: Suicide gesture Condition: Stable Referrals: Pranav Adams MD [Primary Care Provider] - Sign Out Sign Out Data: Patient Sign Out occurred on 07/03/23 at 05:57. Patient's care was discussed, and care was transferred from to Kenji Soto DO. Coding Level of Care Code ED Certified Addiction Counselor for Dahlia Edmondson
[2023-07-03 05:59] VITALS: BP 176/73; PULSE 93; RESP 16; TEMP 36.8; O2SAT 96
[2023-07-03] MEDS: acetaminophen 500 mg Tablet 1000 MG PO (06:02)
[2023-07-03] MEDS: alum-mag-hydroxide-sime 30 mL UDC PO (13:01)
--- NOTE | 2023-07-03 15:15 | W.PM.PSYCONS ---
Providers/Reason for Consult Consulting Physican/Specialty*: Jakob Lomax MD Reason for Consult*: suicidal ideation Primary Care Provider: Pranav Adams MD Psych Consult HPI History of Present Illness Walt Espinoza is a 52 year old male who has been residing for 2 years at the [facility] due to his cerebrovascular accident who presented to the emergency department after he had overdosed on a type of cleaning detergent. The patient had previously consumed bleach through a suicidal gesture 2 years prior to this evaluation. The patient reports that he had thoughts of killing himself on that day because he feels that his who he is from is cheating on him. He reports that another peer at the home had continued to bother him by repeating that his was cheating on him and he states that he became upset. He minimizes having any depressed mood but still reports that if he were to go home he could not assure anyone that he would not overdose on another substance. The patient has a past history of impulsive gestures. He reports that he currently has a legal guardian Fawad Torrez who helps with decision-making. He had acknowledged a past history of methamphetamine and cocaine use that had led to his first stroke having occurred at the age of 19. The patient had reported that he had become more agitated after contacting his and reports that he had spoken to her earlier today and had accused her of having an affair. Patient does report having some difficulties with sleep. He denies any auditory or visual hallucinations. He denies any history of anika. He denies any perceptual disturbances. He does acknowledge requiring significant assistance for completion of activities of daily living. Previous psychiatric history: He denies any previous psychiatric treatment although there had been previous records supporting that he had been hospitalized inpatient several times before in the past. He reports that he is currently not on any psychotropic medications although he states that he has someone that visits his [facility] on occasion that provides his medications. He reports having no psychotherapy at this time. Drug and alcohol history: He reported a past history of alcohol abuse. He also reported history of stimulant abuse but reports that not having used drugs or alcohol in several years. Allergies: Morphine Medical history: CVA, GERD, hypothyroidism, venous insufficiency, onychodystrophy, peripheral artery disease, diabetes Surgical history: Unknown Current medications: Trazodone, Topamax, omeprazole, melatonin, losartan, loratadine, levothyroxine, insulin, glipizide, gabapentin, Colace chlorthalidone, atorvastatin Family psychiatric history: Unknown Social history: Patient was born in [facility] and reports that he was raised by his biological parents. He has 1 brother and 2 sisters. He reports receives special education services all of his life and had dropped out of school early. He had worked 30 years at a [employer]. He had reported only been 3 times before in the past and is currently from his . He had denied any history of sexual physical or emotional abuse. He had reported significant history of drug use and stated that he is currently on disability. Meds Home Medications and Allergies Home Medications Medication Instructions Recorded Confirmed Last Taken Type acetaminophen 325 mg tablet 650 mg PO Q6H y 02/22/21 07/03/23 07/02/23 History aluminum-mag hydroxide-simethicone 10 ml PO Q6H PRN upset stomach 02/22/21 07/03/23 06/18/23 History 400 mg-400 mg-40 mg/5 mL oral susp (Mylanta Maximum Strength) levothyroxine 50 mcg tablet 50 mcg PO DAILY@08 02/22/21 07/03/23 07/03/23 History loperamide 2 mg tablet 2 mg PO Q2H PRN Diarrhea 02/22/21 07/03/23 Unknown History loratadine 10 mg tablet (Claritin) 10 mg PO DAILY@07 02/22/21 07/03/23 07/02/23 History tizanidine 4 mg tablet (Zanaflex) 4 mg PO TID@,,18 02/22/21 07/03/23 07/02/23 History trazodone 100 mg tablet 200 mg PO BEDTIME 02/22/21 07/03/23 07/02/23 History Diabetic Shoes with 3 set of #1 ea 11/14/22 07/03/23 Unknown Rx inserts pen needle,diabetic dual safty 30 #100 ea 06/13/23 07/03/23 Unknown History gauge x 5/16 (Unifine SafeControl) aspirin 81 mg tablet,delayed 81 mg PO DAILY 07/03/23 07/03/23 07/02/23 History release atorvastatin 20 mg tablet 20 mg PO BEDTIME 07/03/23 07/03/23 07/02/23 History chlorthalidone 25 mg tablet 25 mg PO QAM 07/03/23 07/03/23 07/02/23 History collagenase clostridium histo. 250 See Rx Instructions .Route .COMPLEX 07/03/23 07/03/23 07/02/23 History unit/gram topical ointment (Santyl) famotidine 20 mg tablet 20 mg PO BID 07/03/23 07/03/23 07/02/23 History gabapentin 600 mg tablet 600 mg PO QID 07/03/23 07/03/23 07/02/23 History glipizide 5 mg tablet 5 mg PO BID 07/03/23 07/03/23 07/02/23 History insulin aspart U-100 100 unit/mL See Rx Instructions .Route .COMPLEX 07/03/23 07/03/23 07/02/23 History subcutaneous solution (Novolog U-100 Insulin aspart) insulin degludec 100 unit/mL (3 60 unit SUBCUT BEDTIME 07/03/23 07/03/23 07/02/23 History mL) subcutaneous pen (Tresiba FlexTouch U-100 insulin) losartan 100 mg tablet 100 mg PO QAM 07/03/23 07/03/23 07/02/23 History melatonin 10 mg tablet 10 mg PO BEDTIME 07/03/23 07/03/23 07/02/23 History naloxone 0.4 mg/mL injection 0.4 mg SUBCUT Q2M PRN overdose 07/03/23 07/03/23 Unknown History solution omeprazole 20 mg capsule,delayed 20 mg PO QAM 07/03/23 07/03/23 07/02/23 History release topiramate 100 mg tablet 100 mg PO BID 07/03/23 07/03/23 07/02/23 History Allergies Allergy/AdvReac Type Severity Reaction Status Date / Time morphine Allergy Unknown Verified 07/02/23 22:41 Mental Status Exam MSE Comments: Patient was lying in bed with fair eye contact disheveled and unkempt appearance. There was evidence of psychomotor slowing and no active psychomotor agitation. His speech was slow and diminished in volume with some articulation deficits. His mood was described as fine. His affect was flat and mood incongruent. He was alert and oriented to person, place, time and situation. His intellectual functioning appeared to be below average. His thought process was linear but somewhat concrete. His thought content showed no evidence of homicidal ideation with some evidence of suicidal ideation as he was unable to contract for safety. His insight was poor. His judgment appeared impaired. His impulse control appeared impaired. Vitals/I&O/Wt Last Vital Signs Temp 98.3 F 07/03/23 05:59 Pulse 93 07/03/23 05:59 Resp 16 07/03/23 05:59 BP 176/73 07/03/23 05:59 Pulse Ox 96 07/03/23 05:59 O2 Del Method Room Air 07/02/23 22:34 Weight last 48 hrs Weight 136.531 kg Data NPU 07/02/23 23:41 07/02/23 23:41 A&P Assessment and plan (1) Impulse control disorder, unspecified: (2) Depressive disorder: (3) Suicide gesture: (4) Anxiety disorder, unspecified: Plan 52-year-old male with a history of poor impulse control and a past history of depression endorsing continued suicidal ideation with a previous history of impulsively swallowing bleach. He is unable to contract for safety and requires inpatient psychiatric treatment particularly a geriatric psychiatric unit for assistance with his ADLs. restart outpatient medications as prescribed. Transfer to Geropsychiatry facility. Attestations NPU Medical Necessity Statement*: Inpatient geriatric psychiatric hospitalization is medically necessary at this time to continue to evaluate the patient and consider use of medications to target impulsivity and mood symptoms. Coding Level of Care Code Acute Code for g Fwd Diagnoses Impulse control disorder, unspecified F63.9 Depressive disorder F32.9 Suicide gesture X83.8XXA Anxiety disorder, unspecified F41.9
[2023-07-03 16:43] LABS: Glucose Point of Care 397 mg/dL (70-110)
[2023-07-03 18:38] VITALS: BP 155/120; PULSE 80; RESP 16; O2SAT 98
== END 2023-07-03 19:00 ==
PROVIDERS: Emergency Medicine; Emergency Provider Family Medicine; PCP Family Medicine
DX: R45.851 Suicidal ideations (principal); E11.9 Type 2 diabetes mellitus without complications; Z86.73 Personal history of transient ischemic attack (TIA), and cerebral infarction without residual deficits; Z91.51 Personal history of suicidal behavior
CPT/HCPCS: 36415; 36416; 80053; 80306; 80307; 81001; 82962; 85025; 87077; 87086; 87186; 99284

== ENCOUNTER → 2023-11-14 08:49 | Outpatient (BNVA) | payer MEDICARE, MEDICAID, SELFPAY | PROVIDERS: PCP Family Medicine; Visit Provider Podiatrist Foot & Ankle Surgery | DX: E11.42 Type 2 diabetes mellitus with diabetic polyneuropathy (principal); M21.41 Flat foot [pes planus] (acquired), right foot; M21.42 Flat foot [pes planus] (acquired), left foot; I73.9 Peripheral vascular disease, unspecified; L97.512 Non-pressure chronic ulcer of other part of right foot with fat layer exposed; E11.621 Type 2 diabetes mellitus with foot ulcer; Z79.4 Long term (current) use of insulin | CPT/HCPCS: 99213 ==

== ENCOUNTER → 2024-02-13 09:11 | Outpatient (BNVA) | payer MEDICARE, MEDICAID, SELFPAY | PROVIDERS: PCP Family Medicine; Visit Provider Podiatrist Foot & Ankle Surgery | DX: E11.42 Type 2 diabetes mellitus with diabetic polyneuropathy (principal); I73.9 Peripheral vascular disease, unspecified | CPT/HCPCS: 99213 ==

== ENCOUNTER 2025-02-08 18:11 | Emergency (ER) | payer MEDICARE, MEDICAID, SELFPAY ==
[2025-02-08 18:13] VITALS: BP 119/74; PULSE 88; RESP 18; TEMP 36.8; O2SAT 100; BMI 41.3
--- NOTE | 2025-02-08 18:13 | XRR_ITS ---
PROCEDURE INFORMATION: Exam: XR Chest Exam date and time: 02/08/2025 6:57 PM Age: 54 years old Clinical indication: Pain; Chest pressure; Additional info: Cp TECHNIQUE: Imaging protocol: Radiologic exam of the chest. Views: 1 view. COMPARISON: CR XR chest 1V portable [id number] 02/22/2021 8:46 AM FINDINGS: Lungs: Unremarkable. No consolidation. Pleural spaces: Unremarkable. No pleural effusion. No pneumothorax. Heart/Mediastinum: Unremarkable. No cardiomegaly. Bones/joints: Unremarkable. XR/XR chest 1V portable [id number] IMPRESSION: No acute findings.
--- NOTE | 2025-02-08 18:22 | ECG_ITS ---
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 Measurements Intervals [place] Rate: 86 P: 43 VA: 190 QRS: -1 QRSD: 101 T: 32 QT: 375 QTc: 451 Interpretive Statements SINUS RHYTHM LOW QRS VOLTAGE IN PRECORDIAL LEADS [QRS DEFLECTION < 1.0 mV IN CHEST LEADS] Compared to ECG 02/22/2021 03:00:50 Low QRS voltage now present Ventricular premature complex(es) no longer present T-wave abnormality no longer present Electronically Signed On 02-11-2025 11:41:50 CDT by Lazaro Toscano M.D. [email or web address]
--- NOTE | 2025-02-08 18:26 | W.ED.CHESTPA ---
HPI - Chest Pain General: Chief Complaint: Chest Pain Stated Complaint: CHEST PAIN Time Seen by Provider: 02/08/25 18:19 History of Present Illness: 54-year-old male patient here from a senior care. No prior history of coronary disease. He presents with left-sided upper chest pain that radiated into his left arm, causing his arm to go numb. He states that it first happened while he was standing at the nurses station at the senior care. His pain is much improved now. He was given 1 nitroglycerin and aspirin 324 mg en route via ambulance. He states that his arm is still little bit numb. He also relates a cough, pain with deep breathing, some white sputum, and some neck pain for the past week or so. He denies fever. No leg swelling. Related Data Home Medications ?Medication ?Instructions ?Recorded ?Confirmed acetaminophen 325 mg tablet 650 mg PO Q6H y 02/22/21 02/13/24 aluminum-mag hydroxide-simethicone 10 ml PO Q6H PRN upset stomach 02/22/21 02/13/24 400 mg-400 mg-40 mg/5 mL oral susp (Mylanta Maximum Strength) loperamide 2 mg tablet 2 mg PO Q2H PRN Diarrhea 02/22/21 02/13/24 loratadine 10 mg tablet (Claritin) 10 mg PO DAILY@07 02/22/21 02/13/24 tizanidine 4 mg tablet (Zanaflex) 4 mg PO TID@08,14,18 02/22/21 02/13/24 pen needle,diabetic dual safty 30 #100 ea 06/13/23 02/13/24 gauge x 5/16 (Unifine SafeControl Pen Needle) aspirin 81 mg tablet,delayed 81 mg PO DAILY 07/03/23 02/13/24 release collagenase clostridium histo. 250 See Rx Instructions .Route .COMPLEX 07/03/23 02/13/24 unit/gram topical ointment (Santyl) famotidine 20 mg tablet 20 mg PO BID 07/03/23 02/13/24 gabapentin 600 mg tablet 600 mg PO QID 07/03/23 02/13/24 glipizide 5 mg tablet 5 mg PO BID 07/03/23 02/13/24 insulin aspart U-100 100 unit/mL See Rx Instructions .Route .COMPLEX 07/03/23 02/13/24 subcutaneous solution (Novolog U-100 Insulin aspart) insulin degludec 100 unit/mL (3 60 unit SUBCUT BEDTIME 07/03/23 02/13/24 mL) subcutaneous pen (Tresiba FlexTouch U-100 insulin) losartan 100 mg tablet 100 mg PO QAM 07/03/23 02/13/24 naloxone 0.4 mg/mL injection 0.4 mg SUBCUT Q2M PRN overdose 07/03/23 02/13/24 solution omeprazole 20 mg capsule,delayed 20 mg PO QAM 07/03/23 02/13/24 release topiramate 100 mg tablet 100 mg PO BID 07/03/23 02/13/24 chlorthalidone 50 mg tablet mg PO 02/13/24 02/13/24 levothyroxine 88 mcg tablet mcg PO 02/13/24 02/13/24 lisinopril 10 mg tablet 10 mg PO 02/13/24 02/13/24 sertraline 50 mg tablet 50 mg PO 02/13/24 02/13/24 zolpidem 5 mg tablet 5 mg PO 02/13/24 02/13/24 Previous Rx's ?Medication ?Instructions ?Recorded Diabetic Shoes with 3 set of #1 ea 11/20/23 inserts Allergies Allergy/AdvReac Type Severity Reaction Status Date / Time morphine Allergy Unknown Verified 02/13/24 09:26 Physical Exam Const: COMMON NORMALS: no acute distress GENERAL APPEARANCE: cooperative; not ill appearing and not frail appearing HENMT: COMMON NORMALS: normocephalic, atraumatic and Normal external nose present HEAD & SCALP: normocephalic and atraumatic FACE & SINUS: normal facial exam and face symmetric NOSE: Normal external nose present Eye: COMMON NORMALS: Equal, round and reactive pupils present and EOMs intact bilaterally PUPIL: Yes Equal, round and reactive pupils present Neck/C-Spine: GENERAL: Yes trachea midline Chest: CHEST: Yes Symmetrical chest wall rise Resp: COMMON NORMALS: normal respiratory effort, No retractions, No use of accessory muscles and clear to auscultation bilaterally AUSCULTATION: clear to auscultation bilaterally Cardio: COMMON NORMALS: regular rate and regular rhythm RATE: regular rate RHYTHM: regular rhythm GI: COMMON NORMALS: Normal to inspection, nondistended, normoactive bowel sounds present Extremity: COMMON NORMALS: no pedal edema Neuro: SARAH COMA SCALE: document GCS findings Charlotte coma scale eye opening: Spontaneous [place] coma scale verbal response: Orientated [place] coma scale motor response: Obey commands Sarah coma scale total score: 15 SENSORY EXAM: Yes extremities (intact) Psych: COMMON NORMALS: speech normal SPEECH: Yes normal speech Skin: COMMON NORMALS: no rashes or lesions noted GENERAL SKIN EXAM: no rashes or lesions noted Course Vital Signs: Vital signs: Vital Signs Temperature 98.2 F 02/08/25 18:13 Pulse Rate 88 02/08/25 18:41 Respiratory Rate 17 02/08/25 20:37 Blood Pressure 126/71 02/08/25 18:41 Pulse Oximetry 98 02/08/25 18:41 Oxygen Delivery Me thod Room Air 02/08/25 18:13 MDM - Chest Pain Medical Decision Making 54-year-old male. No prior history of coronary disease. He presents with chest discomfort. Chest discomfort is reproducible to some degree with palpation the left upper chest. His CBC is normal. His BMP shows a creatinine of 1.5 which is stable from prior. His sodium is 129. His sugar is 344. His vitals are stable. His chest x-ray is nonacute. His delta troponin is -1.23 at 2 hours. He will be discharged. To return for worsening symptoms. His EKG showed a sinus rhythm with no acute ST wave changes. Lab Data 02/08/25 18:58 02/08/25 18:58 Radiology Impressions Chest X-Ray 02/08/25 18:13 IMPRESSION: No acute findings. Laboratory Results WBC 7.26 10^3/uL (3.29-11.43) 02/08/25 18:58 RBC 4.19 10^6/uL (3.85-5.65) 02/08/25 18:58 Hgb 12.20 g/dL (11.27-16.99) 02/08/25 18:58 Hct 39.1 % (37-53) 02/08/25 18:58 MCV 93.3 fl (82-101) 02/08/25 18:58 MCH 29.1 pg (27-33) 02/08/25 18:58 MCHC 31.2 g/dL (30-55) 02/08/25 18:58 RDW 12.8 % (12.1-15.1) 02/08/25 18:58 Plt Count 283 10^3/cmm (157-399) 02/08/25 18:58 MPV 9.1 fL (7.4-10.4) 02/08/25 18:58 Neut % (Auto) 64.7 % 02/08/25 18:58 Lymph % (Auto) 21.1 % 02/08/25 18:58 Eaton % (Auto) 10.1 % 02/08/25 18:58 Eos % (Auto) 2.2 % 02/08/25 18:58 Baso % (Auto) 0.8 % 02/08/25 18:58 Neut # (Auto) 4.70 10^3/uL (1.8-7.7) 02/08/25 18:58 Lymph # (Auto) 1.5 10^3/uL (0.8-4.8) 02/08/25 18:58 Eaton # (Auto) 0.7 10^3/uL (0.2-0.9) 02/08/25 18:58 Eos # (Auto) 0.2 10^3/uL (0.0-0.8) 02/08/25 18:58 Baso # (Auto) 0.1 10^3/uL (0.0-0.1) 02/08/25 18:58 Nucleated RBC % (auto) 0 % 02/08/25 18:58 Nucleated RBCs # 0.0 /100WBC 02/08/25 18:58 Sodium 129 mmol/L (136-145) L 02/08/25 18:58 Potassium 3.6 mmol/L (3.5-5.1) 02/08/25 18:58 Chloride 93 mmol/L (98-107) L 02/08/25 18:58 Carbon Dioxide 21 mmol/L (22-29) L 02/08/25 18:58 Anion Gap 18.6 (5-19) 02/08/25 18:58 BUN 38 mg/dL (6-20) H 02/08/25 18:58 Creatinine 1.5 mg/dL (0.7-1.2) H 02/08/25 18:58 GFR Calculation 48.4 mL/min (90-130) L 02/08/25 18:58 Glucose 344 mg/dL (65-115) H 02/08/25 18:58 Calculated Osmolality 291 mOsm/kg (285-295) 02/08/25 18:58 Calcium 9.6 mg/dL (8.5-10.5) 02/08/25 18:58 Total Bilirubin 0.2 mg/dL (0.15-1.2) 02/08/25 18:58 AST 35 U/L (0-40) 02/08/25 18:58 ALT 38 U/L (0-41) 02/08/25 18:58 Alkaline Phosphatase 91 U/L (40-130) 02/08/25 18:58 Troponin T Baseline 22 ng/L (0-15) H 02/08/25 18:58 Troponin T 120 Minute 20.77 ng/L (0-15) H 02/08/25 20:35 Delta Troponin T -1.23 ABS# (0-10) L 02/08/25 20:35 NT-Pro-B Natriuret Pep < 36 pg/mL (0-125) 02/08/25 18:58 Total Protein 7.6 g/dL (6.6-8.7) 02/08/25 18:58 Albumin 3.7 g/dL (3.5-5.2) 02/08/25 18:58 Globulin 3.9 g/dL (1.3-4.6) 02/08/25 18:58 All radiology interpretation(s) finalized by discharge Discharge Plan Discharge Patient Disposition: Home Clinical Impression: Chest pain Condition: Stable Prescriptions: No Action (DME) Unifine SafeControl Pen Needle 30 gauge x 5/16 needle See Rx Instructions .ROUTE .MEDSUPPLY Qty: 100 Rx Instructions: As directed sertraline 50 mg tablet 50 mg PO levothyroxine 88 mcg tablet PO chlorthalidone 50 mg tablet PO lisinopril 10 mg tablet 10 mg PO zolpidem 5 mg tablet 5 mg PO (DME) Diabetic Shoes with 3 set of inserts See Rx Instructions .Route .MEDSUPPLY Qty: 1 0RF Rx Instructions: As directed BY HOME tizanidine [Zanaflex] 4 mg Tablet 4 mg PO TID@08,14,18 loratadine [Claritin] 10 mg Tablet 10 mg PO DAILY@07 acetaminophen 325 mg Tablet 650 mg PO Q6H MDD pain loperamide 2 mg Tablet 2 mg PO Q2H PRN (Reason: Diarrhea) alum-mag hydroxide-simeth [Mylanta Maximum Strength] 400-400-40 mg/5 mL Suspension 10 ml PO Q6H PRN (Reason: upset stomach) gabapentin 600 mg tablet 600 mg PO QID Narcan 0.4 mg/mL Solution 0.4 mg SUBCUT Q2M PRN (Reason: overdose) Rx Instructions: NTExceed 10 mg total dose/episode Aspir-81 81 mg Tablet,Delayed Release (Dr/Ec) 81 mg PO DAILY famotidine 20 mg tablet 20 mg PO BID insulin aspart U-100 [Novolog U-100 Insulin aspart] 100 unit/mL solution See Rx Instructions .ROUTE .COMPLEX Rx Instructions: 18 unit subcutaneously with meals and per sliding scale: bs 130-149= 0 units, 150-199= 2 units, 200-249= 4 units, 250-299=6 units, 300-349=8 units, 350-399=10 units,notify physician workers compensation paralegal, 400+=12 units. notify physician workers compensation paralegal omeprazole 20 mg Capsule,Delayed Release(Dr/Ec) 20 mg PO QAM topiramate 100 mg tablet 100 mg PO BID losartan 100 mg tablet 100 mg PO QAM glipizide 5 mg tablet 5 mg PO BID Tresiba FlexTouch U-100 100 unit/mL (3 mL) insulin pen 60 unit SUBCUT BEDTIME Santyl 250 unit/gram ointment See Rx Instructions .ROUTE .COMPLEX Rx Instructions: Apply topically to yellow tissue to right foot every day Discharge Orders: Discharge ED (Routine); Ordered 02/08/25 Ordered By: Heath Baugh Referrals: Pranav Adams MD [Primary Care Provider, Family Practice] Patient Instructions: Chest Pain (ED), Opioid Safety, Pain Management Activity Restrictions/Additional Instructions: Return for repeated episodes of chest pain, worsening shortness of breath, fever, other concerning symptoms. See your doctor next week. Print Language: Luxembourgish Coding Level of Care Code ED Scrap Cutter for Dahlia Edmondson
[2025-02-08 18:41] VITALS: BP 126/71; PULSE 88; RESP 28; O2SAT 98
[2025-02-08] MEDS: fentaNYL 50 mcg/mL INJ 2mL IVP (18:47)
[2025-02-08] MEDS: ondansetron 2 mg/ML SDV 2 mL 4 MG IVP (18:47)
[2025-02-08 19:07] LABS: Basophils # 0.1 10^3/uL (0.0-0.1); Basophils % 0.8 %; Eosinophils # 0.2 10^3/uL (0.0-0.8); Eosinophils % 2.2 %; Hematocrit 39.1 % (37-53); Lymphocytes # 1.5 10^3/uL (0.8-4.8); Lymphocytes % 21.1 %; Mean Corpuscular HGB Conc 31.2 g/dL (30-55); Mean Corpuscular Hemoglobin 29.1 pg (27-33); Mean Corpuscular Volume 93.3 fl (82-101); Mean Platelet Volume 9.1 fL (7.4-10.4); Monocytes # 0.7 10^3/uL (0.2-0.9); Monocytes % 10.1 %; Neutrophils % 64.7 %; Nucleated Red Blood Cells % 0 %; Platelet Count 283 10^3/cmm (157-399); Red Blood Count 4.19 10^6/uL (3.85-5.65); Red Cell Distribution Width 12.8 % (12.1-15.1); White Blood Count 7.26 10^3/uL (3.29-11.43)
[2025-02-08 19:23] LABS: Troponin(5th) Baseline 22 ng/L (0-15)
[2025-02-08 19:37] LABS: Alanine Aminotransferase 38 U/L (0-41); Albumin Level 3.7 g/dL (3.5-5.2); Alkaline Phosphatase 91 U/L (40-130); Anion Gap 18.6 (5-19); Aspartate Amino Transferase 35 U/L (0-40); Blood Urea Nitrogen 38 mg/dL (6-20); Calcium 9.6 mg/dL (8.5-10.5); Carbon Dioxide 21 mmol/L (22-29); Chloride 93 mmol/L (98-107); Creatinine Clr Calc Pharmacy 72.5063; Globulin 3.9 g/dL (1.3-4.6); Glomerular Filtration Rate 48.4 mL/min (90-130); Glucose 344 mg/dL (65-115); NT Pro B Type Natriuretic Pept < 36 pg/mL (0-125); Osmolality Calculated 291 mOsm/kg (285-295); Potassium 3.6 mmol/L (3.5-5.1); Sodium 129 mmol/L (136-145); Total Bilirubin 0.2 mg/dL (0.15-1.2); Total Protein 7.6 g/dL (6.6-8.7)
--- NOTE | 2025-02-08 20:13 | ECG_ITS ---
[employer] Test Date: 2025-02-08 Pat Name: Walt Espinoza Department: Room: Gender: Male Insecticide Maker: Hernan : 1970 Requested By: Heath Powers Order Number: [id number] Maryanne MD: AUSTYN HOLLINS Measurements Intervals [place] Rate: 88 P: 46 WV: 187 QRS: -3 QRSD: 97 T: 31 QT: 341 QTc: 414 Interpretive Statements SINUS RHYTHM LOW QRS VOLTAGE IN PRECORDIAL LEADS [QRS DEFLECTION < 1.0 mV IN CHEST LEADS] NONSPECIFIC T-WAVE ABNORMALITY Compared to ECG 02/08/2025 18:22:08 T-wave abnormality now present Electronically Signed On 02-12-2025 23:01:39 CDT by AUSTYN HOLLINS [email or web address]
[2025-02-08 20:37] VITALS: RESP 17
[2025-02-08] MEDS: fentaNYL 50 mcg/mL INJ 2mL 100 MCG IVP (20:37)
[2025-02-08 20:58] LABS: Troponin 5 2HR 20.77 ng/L (0-15)
[2025-02-08 21:03] LABS: Troponin 5 2HR Delta -1.23 ABS# (0-10)
== END 2025-02-08 23:01 | disposition home or self-care (01) ==
PROVIDERS: Emergency Provider Emergency Medicine; PCP Family Medicine
DX: R07.9 Chest pain, unspecified (principal); Z79.4 Long term (current) use of insulin
CPT/HCPCS: 36415; 71045; 80053; 83880; 84484; 85025; 93005; 96374; 96375; 96376; 99285; J2405; J3010

== ENCOUNTER 2025-06-14 00:18 | Emergency (ER) | payer MEDICARE, MEDICAID, SELFPAY ==
--- OUTSIDE RECORDS SUMMARY | 2025-06-14 00:24 | XMS_ITS | Encounter Summary ---
Author Organization [facility] Address [address] [place] [id number] Care Team Providers Care Pharmaceutical Process Engineer Name Role Phone Pranav Adams MD Primary Care Provider Encounter Details Date Type Department Care Team (Late st Contact Info) Description 01/21/2020 Orders Only [facility] [address] [place] [phone] Praful Zamarripa MD Social History Tobacco Use Types Packs/Day Years Used Date Smoking Tobacco: Every Day Smokeless Tobacco: Never Sex and Gender Information Value Date Recorded Sex Assigned at Not on file Legal Sex Male 7:59 PM CDT Gender Identity Not on file Sexual Orientation Not on file COVID-19 Exposure Response Date Recorded In the last month, have you been in contact with someone who was confirmed or suspected to have Coronavirus / COVID-19? Unable to assess 01/20/2020 9:34 AM CDT documented as of this encounter Plan of Treatment Upcoming Encounters Date Type Department Care Team (Late st Contact Info) Description 06/23/2025 3:45 PM CDT External Patient Visit [facility] [place] - [facility] [address] [place] [id number] Pranav Adams MD [address] [place] [id number] documented as of this encounter Visit Diagnoses Not on filedocumented in this encounter Additional Health Concerns Health Status Noted Date Alive and well 01/20/2020 Infection Onset Date Last Indicated Resolved Time COVID-19 (rule out) 01/27/2020 02/05/2020 02/03/20 4:00 AM CDT Assessment Noted Time A fall risk assessment has been complete d for the patient 01/20/2020 10:30 AM CDT documented as of this encounter Care Teams Pharmaceutical Process Engineer Relationship Specialty Start Date End Date Pranav Adams MD [address] [place] [id number] PCP - General Family Medicine 08/09/22 documented as of this encounter
--- OUTSIDE RECORDS SUMMARY | 2025-06-14 00:24 | XMS_ITS | Clinical Summary ---
Author Organization [facility] ie Address [address] [facility] [address] [place] [address] Phone Care Team Providers Care Cracking Machine Operator Name Role Phone Unavailable Primary Care Provider Unavailabl e Social History Tobacco Use Types Packs/Day Years Used Date Smoking Tobacco: Never Assessed Sex and Gender Information Value Date Recorded Sex Assigned at Not on file Legal Sex Male 11:34 AM CDT Gender Identity Not on file Sexual Orientation Not on file Plan of Treatment Health Maintenance Due Date Last Done Comments DTAP/TDAP/TD VACCINES (1 - Tdap) 12/10/1987 HEPATITIS B VACCINES (1 of 3 - 19+ 3-dose series) 11/11 COLORECTAL SCREENING 2013 Colorectal Cancer Screening 2013 FIT-DNA Q 3 years 2013 FIT/FOBT Q 1 year 2013 Flex Sig/CT Colonography Q 5 years 2013 ZOSTER VACCINE (1 of 2) 2018 INFLUENZA VACCINE (#1) 2025 Insurance MEDICARE PART A [place] B [id number]
--- OUTSIDE RECORDS SUMMARY | 2025-06-14 00:25 | XMS_ITS | Encounter Summary ---
Author Organization [facility] Address [address] [facility] [place] [address] Care Team Providers Care Under Sheriff Name Role Phone Pranav Adams MD Primary Care Provider Encounter Details Date Type Department Care Team (Late st Contact Info) Description 01/30/2020 Telephone [facility] [address] [place], [place] [address] Gabrielle Joyce, RN Social History Tobacco Use Types Packs/Day Years [...] AM CDT documented as of this encounter Miscellaneous Notes * Telephone Encounter - Gabrielle Joyce RN - 01/30/2020 12:59 PM CDT Spoke with Taylor Arana at [facility]. Completed education to Taylor for patient for COVID-19 Pre-Op Testing and Visitor Information. Beginning elective surgery and extra precautions for for patient safety. - Screening everyone who enters building. - Ensuring everyone who enters building is wearing a mask. - Following infection control practices recommended by the CDC. - Limiting visitors. COVID-19 testing ensures patients do not undergo surgery with a compromised immune system. Advised to self-quarantine after initial testing, through surgery date. - Do not leave home unless seeking medical care. - Do not go to the store. - If possible, stay in a specific room in home away from others. - Continue practicing social distancing and stay at least 6 feet away. Out patient patient procedures will not be allowed a visitor. When patient is ready to be discharged, the automation driver will be called to pick the patient up at Entrance #4. documented in this encounter Plan of Treatment Upcoming Encounters Date Type Department Care Team (Late st Contact Info) Description 06/23/2025 3:45 PM CDT External Patient Visit [facility] [place] - Primary [facility] [address] [place] [phone] Pranav Adams MD [address] [place] [address] documented as of this encounter Visit Diagnoses Not on filedocumented in this encounter Additional Health Concerns Health Status Noted Date Alive and well 01/20/2020 Infection Onset Date Last Indicated Resolved Time COVID-19 (rule out) 01/27/2020 02/05/2020 02/03/20 20 4:00 AM CDT Assessment Noted Time A fall risk assessment has been complete d for the patient 01/20/2020 10:30 AM CDT documented as of this encounter Care Teams Under Sheriff Relationship Specialty Start Date End Date Pranav Adams MD [address] [place] [address] PCP - General Family Medicine 08/09/22 documented as of this encounter
--- OUTSIDE RECORDS SUMMARY | 2025-06-14 00:25 | XMS_ITS | Clinical Summary ---
Author Organization [facility] Address [address] [place] [address] Care Team Providers Care Government Sales Manager Name Role Phone Pranav Adams MD Primary Care Provider Allergies Active Allergy Reactions Criticality Noted Date Comments Morphine Unknown 08/17/2022 Morphine Sulfate Unknown Medications gabapentin (NEURONTIN) 300 mg capsule Take 300 mg by mouth in the morning and 300 mg in the evening. 10/02/19 20 Active levothyroxine (SYNTHROID) 50 MCG tablet Take 50 mcg by mouth every morning before breakfast. 10/18/19 20 Active pantoprazole (PROTONIX) 20 MG EC tablet Take 20 mg by mouth every morning before breakfast. 10/18/19 20 Active risperiDONE (RISPERDAL) 3 MG tablet Take 3 mg by mouth nightly. 10/22/19 20 Active JANUVIA 50 mg tablet Take 50 mg by mouth in the morning. 10/18/19 20 Active tiZANidine (ZANAFLEX) 4 MG tablet Take 4 mg by mouth in the morning and 4 mg at noon and 4 mg in the evening. 10/02/19 20 Active topiramate (TOPAMAX) 50 MG tablet Take 50 mg by mouth in the morning and 50 mg at noon and 50 mg in the evening. 10/18/19 20 Active traZODone (DESYREL) 100 MG tablet Take 200 mg by mouth nightly. 10/18/19 20 Active ferrous sulfate 325 mg (65 mg of elemental iron) tablet Take 325 mg by mouth daily with breakfast. Active glipiZIDE (GLUCOTROL) 10 MG 24 hr tablet Take 10 mg by mouth in the morning. Active loratadine (CLARITIN) 10 mg tablet Take 10 mg by mouth in the morning. Active magnesium oxide (MAG-OX) 400 mg tablet Take 400 mg by mouth in the morning. Active cholecalciferol, vitamin D3, 50,000 unit capsule Take 50,000 Units by mouth Every . Active hydrOXYzine (VISTARIL) 50 MG capsule Take 50 mg by mouth as needed in the morning and 50 mg as needed at noon and 50 mg as needed in the evening for anxiety. Active lactulose 10 gram/15 mL (15 mL) solution Take 10 g by mouth in the morning and 10 g at noon and 10 g in the evening. Active docusate sodium 100 mg capsule Take 100 mg by mouth as needed in the morning and 100 mg as needed at noon and 100 mg as needed in the evening for constipatio n. 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 2 mL 1 05/22/20 25 Active insulin degludec (TRESIBA) 100 unit/mL (3 mL) subcutaneous penIndications:T ype 2 diabetes mellitus with diabetic polyneuropathy, with long-term current use of insulin (HCC) 65 units every morning and every evening 05/22/20 25 Active insulin degludec (TRESIBA) 100 unit/mL (3 mL) subcutaneous penIndications:T ype 2 diabetes mellitus with diabetic polyneuropathy, with long-term current use of insulin (HCC) 50 units every morning and every evening 15 mL 5 05/20/20 25 025 Discontinued furosemide (LASIX) 40 mg tabletIndication s:Peripheral edema Take 1 tablet (40 mg total) by mouth in the morning for 7 days. 7 tablet 05/22/20 25 025 potassium chloride, KCL, (KLOR-CON M20) 20 mEq CR tabletIndication s:Peripheral edema Take 1 tablet (20 mEq total) by mouth in the morning for 7 days. 7 tablet 05/22/20 25 025 cephalexin (KEFLEX) 500 mg capsuleIndicatio ns:Cellulitis of left lower extremity Take 1 capsule (500 mg total) by mouth in the morning and 1 capsule (500 mg total) in the evening. Do all this for 10 days. 20 capsule 05/22/20 25 025 Active Problems Problem Noted Date Diagnosed Date Poorly controlled diabetes mellitus 05/22/2025 Multiple closed fractures of thoracic spine, seq uela 06/07/2024 Chronic bilateral low back pain without sciatica 09/22/2022 Acquired hypothyroidism 09/22/2022 Type 2 diabetes mellitus wit h diabetic polyneuropathy, with long-term current use of insulin Essential hypertension Anemia Anxiety Assessment & Plan (07/14/2023 1:25 PM CDT): Continue lorazepam 1 mg p.o. q.8 p.r.n. x4 days. Bipolar 1 disorder Borderline personality disorder Cognitive impairment Other hyperlipidemia Allergic rhinitis GERD (gastroesophageal reflux disease) Resolved Problems Problem Noted Date Diagnosed Date Resolved Date Disease of thyroid gland 10/2021 Encounters Date Type Department Care Team Description 05/20/2025 Refill [facility] - Primary Care [address] [facility] [address] [place], [place] [id number] Parish Mays LPN Type 2 diabetes mellitus with diabetic polyneuropathy, with long-term current use of insulin (HCC) (Primary Dx) from Last 3 Months Social History Tobacco Use Types Packs/Day Years Used Date Smoking Tobacco: Every Day Smokeless Tobacco: Never Tobacco Cessation:Ready to Q uit: Not Asked; Counseling Given: Not Answered Alcohol Use Standard Drinks/Week Comments Not Currently 0 (1 standard drink = 0.6 oz pur e alcohol) PHQ-2 Answer Date Recorded PHQ-2 Score 0 09/30/2024 Sex and Gender Information Value Date Recorded Sex Assigned at Not on file Legal Sex Male 7:59 PM CDT Gender Identity Not on file Sexual Orientation Not on file Last Filed Vital Signs Vital Sign Reading Time Taken Comments Blood Pressure 126/72 05/26/2025 9:45 AM CDT Pulse 82 04/28/2025 9:20 AM CDT Temperature 36.4 C (97.6 F) 05/26/2025 9:45 AM CDT Respiratory Rate 18 05/26/2025 9:45 AM CDT Oxygen Saturation 99% 05/26/2025 9:45 AM CDT Inhaled Oxygen Concentration - - Weight 129 kg (283 lb 9.6 oz) 05/26/2025 9:45 AM CDT Height 162.6 cm (5' 4 ) 05/26/2025 9:45 AM CDT Body Mass Index 48.68 05/26/2025 9:45 AM CDT Plan of Treatment Upcoming Encounters Date Type Department Care Team (Late st Contact Info) Description 06/23/2025 3:45 PM CDT External Patient Visit [facility] [place] - Primary Care [address] [place] [address] Pranav Adams MD [address] [place] [address] Health Maintenance Due Date Last Done Comments Foot Exam 1968 Hemoglobin A1C 1968 Ophthalmology Exam 1978 Urine Microalbumin 1978 Hepatitis B Vaccines (1 of 3 - 19+ 3-dose series) 12/10/1987 Pneumococcal Vaccine: 50+ Years (1 of 2 - PCV) 12/10/1987 Td, Tdap Vaccines Adult 12/10/1987 Colonoscopy 2013 Influenza Vaccination (#1) 04/11/202507/03, 07/31/2023, 07/04/2022, Additional history exists Shingrix (ZOSTER RECOMBINANT) (2 of 2) 06/27/2025 05/02/2025 Medicare Annual Wellness 02/14/2026 025, 12/01/2023, 12/01/2023, Additional history exists COVID-19 Vaccine Completed 12/05/2024, , 04/20/2023, Additional history exists HIB Vaccines Aged Out No longer eligi ble based on patient's age to complete this topic HPV Vaccines Aged Out No longer eligi ble based on patient's age to complete this topic Hepatitis A Vaccines Aged Out No long er eligible based on patient's age to complete this topic IPV Vaccines Aged Out No longer eligi ble based on patient's age to complete this topic Meningococcal Vaccines Aged Out No lo nger eligible based on patient's age to complete this topic RSV Mab Nirsevimab (Beyfortus) <20 months Aged Out No longer eligibl e based on patient's age to complete this topic Rotavirus Vaccines Aged Out No longer eligible based on patient's age to complete this topic Medical Devices Implanted Type Area Dehydrator Operator Device Identifier Shelf Expiration Date Model / Serial / Lot Vivigen 5cc Cellular Bone Matrix Formable - [id number] - [id number] Implanted:Qty: 1 on 02/11/2020 by Praful Zamarripa MD at [facility] IMPLANT Left: Arm [email or web address] 07/14/2020 BL-1600-00 2 / [id number] / Screw Lock Slf/Tping 44mm Sd - [id number] Implanted:Qty: 1 on 02/11/2020 by Praful Zamarripa MD at [facility] Left: Arm SYNTHES 212.134 / / Sp Screw Lock Slf/Tpng 30mm Sd - [id number] Implanted:Qty: 2 on 02/11/2020 by Praful Zamarripa MD at [facility] Left: Arm SYNTHES 212.111 / / Screw Locking Self Tapping 32mm [address] Recess - [id number] Implanted:Qty: 1 on 02/11/2020 by Praful Zamarripa MD at [facility] Left: Arm SYNTHES 212.112 / / Screw Slf/Tpng 3.5x42mm - [id number] Implanted:Qty: 1 on 02/11/2020 by Praful Zamarripa MD at [facility] Left: Arm SYNTHES 204.842 / / Plate Lcp Proximal Humerus 6 Hole 114mm - [id number] Implanted:Qty: 1 on 02/11/2020 by Praful Zamarripa MD at [facility] Left: Arm SYNTHES 241.903 / / Sp Screw Lock Slf/Tpng 36mm Sd - [id number] Implanted:Qty: 1 on 02/11/2020 by Praful Zamarripa MD at [facility] Left: Arm SYNTHES 212.115 / / Screw Lock Self Tapping 38mm Star D[employer]en - [id number] Implanted:Qty: 2 on 02/11/2020 by Praful Zamarripa MD at [facility] Left: Arm SYNTHES 212.116 / / Sp Screw Lock Slf/Tpng 40mm Sd - [id number] Implanted:Qty: 1 on 02/11/2020 by Praful Zamarripa MD at [facility] Left: Arm SYNTHES 212.117 / / Screw Locking Self Tapping 50mm - [id number] Implanted:Qty: 2 on 02/11/2020 by Praful Zamarripa MD at [facility] Left: Arm SYNTHES 212.121 / / Insurance MEDICARE [facility] Care Teams Government Sales Manager Relationship Specialty Start Date End Date Pranav Adams MD [facility] [address] [place] [address] PCP - General Family Medicine 08/09/22
--- OUTSIDE RECORDS SUMMARY | 2025-06-14 00:25 | XMS_ITS | Clinical Summary ---
Author Organization [facility] Address [address] [facility] [address] [place] [address] Phone Care Team Providers Care Lehr Cutter Name Role Phone Unavailable Primary Care Provider Unavailabl e Allergies Active Allergy Reactions Criticality Noted Date Comments Morphine Unknown 01/15/2023 Medications chlorthalidone (HYGROTON) 50 mg tablet Take 50 mg by mouth daily. Active clindamycin HCL (CLEOCIN) 300 mg Capsule Take 300 mg by mouth 4 times daily. Active tiZANidine (ZANAFLEX) 4 mg Tablet Take 4 mg by mouth every 6 hours as needed for Spasm. Active omeprazole (PriLOSEC) 20 mg Capsule, Delayed Release(E.C.) Take 20 mg by mouth daily. Active acetaminophen (TYLENOL) 325 mg tablet Take 650 mg by mouth every 4 hours as needed. Active atorvastatin (LIPITOR) 20 mg tablet Take 20 mg by mouth daily. Active gabapentin (NEURONTIN) 300 mg capsule Take 300 mg by mouth 3 times daily. Active famotidine (PEPCID) 20 mg tablet Take 20 mg by mouth 2 times daily. Active traZODone (DESYREL) 100 mg tablet Take 200 mg by mouth daily at bedtime. Active glipiZIDE (GLUCOTROL) 5 mg tablet Take 5 mg by mouth daily with breakfast. Active aspirin (ECOTRIN EC) 81 mg Tablet, Delayed Release (E.C.) Take 81 mg by mouth daily. Active topiramate (TOPAMAX) 100 mg tablet Take 100 mg by mouth 2 times daily. Active melatonin 5 mg Tablet Take 10 mg by mouth nightly as needed. Active OXcarbazepine (TRILEPTAL) 300 mg tablet Take 300 mg by mouth 2 times daily. Active loratadine (CLARITIN) 10 mg tablet Take 10 mg by mouth daily. Active losartan (COZAAR) 100 mg tablet Take 100 mg by mouth daily. Active levothyroxine 50 mcg tablet Take 50 mcg by mouth daily in the morning. Active insulin aspart (NovoLOG) 100 unit/mL injection Inject by subcutaneous injection. Active paliperidone (INVEGA) 3 mg Extended Release 24 hour tablet Take 3 mg by mouth daily in the morning. Active aluminum - magnesium - simethicone (MYLANTA) 200-200-20 mg/5 mL Suspension Take 20 mL by mouth every 6 hours as needed for Dyspepsia. Active lidocaine (LIDODERM) 5 % Adhesive Patch, Medicated Apply 1 Patch to affected area every 24 hours. 30 Patch Active Active Problems Problem Noted Date Diagnosed Date Acute cystitis with hematuria 01/15/2023 Encounters Date Type Department Care Team Description 04/22/2025 External Device Data ST[facility] ABSTRACTION Provider, Abstract 03/27/2025 External Device Data [facility] ABSTRACTION Provider, Abstract 03/26/2025 External Device Data [facility] ABSTRACTION Provider, Abstract 03/26/2025 External Device Data [place] ABSTRACTION Provider, Abstract from Last 3 Months Social History Tobacco Use Types Packs/Day Years Used Date Smoking Tobacco: Former Cigarettes Feeling Safe Answer Date Recorded Are you in a relationship wi th someone who hurts you emotionally and/or physically? No 01/15/2023 Sex and Gender Information Value Date Recorded Sex Assigned at Not on file Legal Sex Male 11:34 AM CDT Gender Identity Not on file Sexual Orientation Not on file Last Filed Vital Signs Vital Sign Reading Time Taken Comments Blood Pressure 128/74 07/04/2024 11:32 AM CDT Pulse 81 01/15/2023 7:45 PM CDT Temperature 37.1 C (98.8 F) 01/15/2023 2:55 PM CDT Respiratory Rate 21 01/15/2023 6:45 PM CDT Oxygen Saturation 95% 01/15/2023 6:45 PM CDT Inhaled Oxygen Concentration - - Weight 134.3 kg (296 lb) 07/04/2024 11:32 AM CDT Height 175.3 cm (5' 9 ) 07/04/2024 11:32 AM CDT Body Mass Index 43.71 07/04/2024 11:32 AM CDT Plan of Treatment Health Maintenance Due Date Last Done Comments DIABETES ANNUAL FOOT EXAM 1986 DIABETES ANNUAL RETINAL EXAM 1986 DIABETES HBA1C Q 6 MONTHS 1986 DIABETES MICROALBUMIN ANNUAL SCREEN 1986 LDL CHOLESTEROL ANNUAL 1986 DTAP/TDAP/TD VACCINES (1 - Tdap) 12/10/1987 HEPATITIS B VACCINES (1 of 3 - 19+ 3-dose series) 12/10/1987 COLORECTAL SCREENING 2013 Colorectal Cancer Screening 2013 FIT-DNA Q 3 years 2013 FIT/FOBT Q 1 year 2013 Flex Sig/CT Colonography Q 5 years 2013 ZOSTER VACCINE (1 of 2) 2018 INFLUENZA VACCINE (#1) 2025 COVID-19 Vaccine Completed 12/05/2024, , 04/20/2023, Additional history exists Insurance [place] [id number] [id number] PART [place] AND B
[2025-06-14 00:35] VITALS: BP 114/80; PULSE 93; RESP 18; TEMP 36.3; O2SAT 99; BMI 41.5
[2025-06-14 00:41] VITALS: BP 114/80; PULSE 93; RESP 18; TEMP 36.3; O2SAT 99
--- NOTE | 2025-06-14 00:43 | ECG_ITS ---
[employer] Test Date: 2025-06-14 Pat Name: Walt Espinoza Department: Room: Gender: Male Java Sdet: : 1970 Requested By: Heath Powers Order Number: [id number] Madden MD: Matt Ibrahim M.D. Measurements Intervals [place] Rate: P: 0 CT: 0 QRS: 0 QRSD: 0 T: 0 QT: 0 QTc: 0 Interpretive Statements Normal Sinus Rhythm NO FURTHER INTERPRETATION POSSIBLE ATYPICAL ECG WARNING: DATA QUALITY MAY AFFECT INTERPRETATION Compared to ECG 02/08/2025 20:35:57 Sinus rhythm no longer present T-wave abnormality no longer present Electronically Signed On 06-14-2025 14:27:33 CDT by Matt Ibrahim M.D. [email or web address]
--- NOTE | 2025-06-14 00:43 | XRR_ITS ---
PROCEDURE INFORMATION: Exam: XR Chest Exam date and time: 06/14/2025 12:50 AM Age: 54 years old Clinical indication: Chest pressure; C/O chest pain; Additional info: Cp TECHNIQUE: Imaging protocol: Radiologic exam of the chest. Views: 1 view. COMPARISON: CR XR chest 1V portable [id number] 02/08/2025 6:57 PM FINDINGS: Lungs: Unremarkable. No consolidation. Pleural spaces: Unremarkable. No pleural effusion. No pneumothorax. Heart/Mediastinum: Unremarkable. No cardiomegaly. Bones/joints: Partially imaged internal fixation hardware of the left humerus. XR/XR chest 1V portable [id number] IMPRESSION: No acute findings.
[2025-06-14 00:55] LABS: Hematocrit 34.8 % (37-53); Hemoglobin 11.10 g/dL (11.27-16.99); Mean Corpuscular HGB Conc 31.9 g/dL (30-55); Mean Corpuscular Hemoglobin 29.8 pg (27-33); Mean Corpuscular Volume 93.3 fl (82-101); Nucleated Red Blood Cells % 0 %; Platelet Count 267 10^3/cmm (157-399); Red Blood Count 3.73 10^6/uL (3.85-5.65); White Blood Count 8.86 10^3/uL (3.29-11.43)
[2025-06-14 01:00] VITALS: RESP 18
[2025-06-14] MEDS: fentaNYL 50 mcg/mL INJ 2mL 100 MCG IVP (01:00)
[2025-06-14] MEDS: ondansetron 2 mg/ML SDV 2 mL 4 MG IVP (01:00)
[2025-06-14 01:18] LABS: Troponin(5th) Baseline 26 ng/L (0-15)
[2025-06-14 01:25] LABS: Alanine Aminotransferase 22 U/L (0-41); Albumin Level 3.6 g/dL (3.5-5.2); Alkaline Phosphatase 81 U/L (40-130); Aspartate Amino Transferase 19 U/L (0-40); Blood Urea Nitrogen 32 mg/dL (6-20); Calcium 8.8 mg/dL (8.5-10.5); Carbon Dioxide 20 mmol/L (22-29); Chloride 100 mmol/L (98-107); Creatinine Clr Calc Pharmacy 90.8091; Globulin 2.6 g/dL (1.3-4.6); Glucose 188 mg/dL (65-115); Lipase 32 U/L (13-60); NT Pro B Type Natriuretic Pept 495 pg/mL (0-125); Osmolality Calculated 290 mOsm/kg (285-295); Sodium 134 mmol/L (136-145); Total Protein 6.2 g/dL (6.6-8.7)
[2025-06-14 01:48] LABS: Anion Gap 17.3 (5-19); Potassium 3.3 mmol/L (3.5-5.1)
[2025-06-14 03:02] LABS: Troponin 5 2HR 23.97 ng/L (0-15)
[2025-06-14 03:12] LABS: Troponin 5 2HR Delta -2.03 ABS# (0-10)
--- NOTE | 2025-06-14 03:16 | W.ED.CHESTPA ---
HPI - Chest Pain General: Chief Complaint: Chest Pain Stated Complaint: cp Time Seen by Provider: 06/14/25 00:20 History of Present Illness: Patient is a 54-year-old male with a history of hypertension and four previous cerebrovascular accidents (CVAs) who presents with acute onset of sternal chest pain. The pain radiates to his back and right shoulder. Patient reports the pain severity as 9/10. He endorses associated shortness of breath and states it hurts to take deep breaths. Patient denies cough, fever, or nausea. The patient was initially reluctant to take aspirin without water. He appears tired and in significant discomfort during the examination. Related Data Home Medications ?Medication ?Instructions ?Recorded ?Confirmed acetaminophen 325 mg tablet 650 mg PO Q6H y 02/22/21 02/13/24 aluminum-mag hydroxide-simethicone 10 ml PO Q6H PRN upset stomach 02/22/21 02/13/24 400 mg-400 mg-40 mg/5 mL oral susp (Mylanta Maximum Strength) loperamide 2 mg tablet 2 mg PO Q2H PRN Diarrhea 02/22/21 02/13/24 loratadine 10 mg tablet (Claritin) 10 mg PO DAILY@07 02/22/21 02/13/24 tizanidine 4 mg tablet (Zanaflex) 4 mg PO TID@08,14,18 02/22/21 02/13/24 pen needle,diabetic dual safty 30 #100 ea 06/13/23 02/13/24 gauge x 5/16 (Unifine SafeControl Pen Needle) aspirin 81 mg tablet,delayed 81 mg PO DAILY 07/03/23 02/13/24 release collagenase clostridium histo. 250 See Rx Instructions .Route .COMPLEX 07/03/23 02/13/24 unit/gram topical ointment (Santyl) famotidine 20 mg tablet 20 mg PO BID 07/03/23 02/13/24 gabapentin 600 mg tablet 600 mg PO QID 07/03/23 02/13/24 glipizide 5 mg tablet 5 mg PO BID 07/03/23 02/13/24 insulin aspart U-100 100 unit/mL See Rx Instructions .Route .COMPLEX 07/03/23 02/13/24 subcutaneous solution (Novolog U-100 Insulin aspart) insulin degludec 100 unit/mL (3 60 unit SUBCUT BEDTIME 07/03/23 02/13/24 mL) subcutaneous pen (Tresiba FlexTouch U-100 insulin) losartan 100 mg tablet 100 mg PO QAM 07/03/23 02/13/24 naloxone 0.4 mg/mL injection 0.4 mg SUBCUT Q2M PRN overdose 07/03/23 02/13/24 solution omeprazole 20 mg capsule,delayed 20 mg PO QAM 07/03/23 02/13/24 release topiramate 100 mg tablet 100 mg PO BID 07/03/23 02/13/24 chlorthalidone 50 mg tablet mg PO 02/13/24 02/13/24 levothyroxine 88 mcg tablet mcg PO 02/13/24 02/13/24 lisinopril 10 mg tablet 10 mg PO 02/13/24 02/13/24 sertraline 50 mg tablet 50 mg PO 02/13/24 02/13/24 zolpidem 5 mg tablet 5 mg PO 02/13/24 02/13/24 Previous Rx's ?Medication ?Instructions ?Recorded Diabetic Shoes with 3 set of #1 ea 11/20/23 inserts Allergies Allergy/AdvReac Type Severity Reaction Status Date / Time morphine Allergy Unknown Verified 02/13/24 09:26 Physical Exam Const: COMMON NORMALS: no acute distress GENERAL APPEARANCE: cooperative; not ill appearing and not frail appearing HENMT: COMMON NORMALS: normocephalic, atraumatic and Normal external nose present HEAD & SCALP: normocephalic and atraumatic FACE & SINUS: normal facial exam and face symmetric NOSE: Normal external nose present Eye: COMMON NORMALS: Equal, round and reactive pupils present and EOMs intact bilaterally PUPIL: Yes Equal, round and reactive pupils present Neck/C-Spine: GENERAL: Yes trachea midline Chest: CHEST: Yes Symmetrical chest wall rise Resp: COMMON NORMALS: normal respiratory effort, No retractions, No use of accessory muscles and clear to auscultation bilaterally AUSCULTATION: clear to auscultation bilaterally Cardio: COMMON NORMALS: regular rate and regular rhythm RATE: regular rate RHYTHM: regular rhythm GI: COMMON NORMALS: Normal to inspection, nondistended, normoactive bowel sounds present Extremity: COMMON NORMALS: no pedal edema Neuro: SARAH COMA SCALE: document GCS findings Sarah coma scale eye opening: Spontaneous Sarah coma scale verbal response: Orientated Sarah coma scale motor response: Obey commands [place] coma scale total score: 15 SENSORY EXAM: Yes extremities (intact) Psych: COMMON NORMALS: speech normal SPEECH: Yes normal speech Skin: COMMON NORMALS: no rashes or lesions noted GENERAL SKIN EXAM: no rashes or lesions noted Course Vital Signs: Vital signs: Vital Signs Temperature 97.4 F L 06/14/25 00:41 Pulse Rate 93 06/14/25 00:41 Respiratory Rate 18 06/14/25 01:00 Blood Pressure 114/80 06/14/25 00:41 Pulse Oximetry 99 06/14/25 00:41 Oxygen Delivery Me thod Room Air 06/14/25 00:41 MDM - Chest Pain Medical Decision Making Vitals are stable. Pain is improved after morphine here. He was given Toradol as well after enzymes turn negative. CBC is not remarkable. BMP remarkable for potassium of 3.3 which is repleted. Chest x-ray is nonacute. EKG shows a sinus rhythm with a left axis. Normal intervals. No ST wave changes. Initial troponin is 26 with a 2-hour troponin of 24. Lipase is 32. With resolution of his pain, no elevation in cardiac markers at 2 hours, he is stable for discharge. Return for return of or worsening symptoms. Lab Data 06/14/25 00:30 06/14/25 00:30 Radiology Impressions Chest X-Ray 06/14/25 00:43 IMPRESSION: No acute findings. Laboratory Results WBC 8.86 10^3/uL (3.29-11.43) 06/14/25 00:30 RBC 3.73 10^6/uL (3.85-5.65) L 06/14/25 00:30 Hgb 11.10 g/dL (11.27-16.99) L 06/14/25 00:30 Hct 34.8 % (37-53) L 06/14/25 00:30 MCV 93.3 fl (82-101) 06/14/25 00:30 MCH 29.8 pg (27-33) 06/14/25 00:30 MCHC 31.9 g/dL (30-55) 06/14/25 00:30 RDW 13.0 % (12.1-15.1) 06/14/25 00:30 Plt Count 267 10^3/cmm (157-399) 06/14/25 00:30 MPV 8.7 fL (7.4-10.4) 06/14/25 00: Neut % (Auto) 63.3 % 06/14/25 00: Lymph % (Auto) 20.8 % 06/14/25 00:30 [place] % (Auto) 11.1 % 06/14/25 00:30 Eos % (Auto) 2.9 % 06/14/25 00:30 Baso % (Auto) 0.5 % 06/14/25 00:30 Neut # (Auto) 5.62 10^3/uL (1.8-7.7) 06/14/25 00:30 Lymph # (Auto) 1.8 10^3/uL (0.8-4.8) 06/14/25 00:30 [place] # (Auto) 1.0 10^3/uL (0.2-0.9) H 06/14/25 00:30 Eos # (Auto) 0.3 10^3/uL (0.0-0.8) 06/14/25 00:30 Baso # (Auto) 0.0 10^3/uL (0.0-0.1) 06/14/25 00:30 Nucleated RBC % (auto) 0 % 06/14/25 00: Nucleated RBCs # 0.0 /100WBC 06/14/25 00:30 Sodium 134 mmol/L (136-145) L 06/14/25 00:30 Potassium 3.3 mmol/L (3.5-5.1) L 06/14/25 00: Chloride 100 mmol/L (98-107) 06/14/25 00: Carbon Dioxide 20 mmol/L (22-29) L 06/14/25 00:30 Anion Gap 17.3 (5-19) 06/14/25 00:30 BUN 32 mg/dL (6-20) H 06/14/25 00:30 Creatinine 1.2 mg/dL (0.7-1.2) 06/14/25 00:30 GFR Calculation 62.6 mL/min (90-130) L 06/14/25 00:30 Glucose 188 mg/dL (65-115) H 06/14/25 00:30 Calculated Osmolality 290 mOsm/kg (285-295) 06/14/25 00:30 Calcium 8.8 mg/dL (8.5-10.5) 06/14/25 00:30 Total Bilirubin 0.2 mg/dL (0.15-1.2) 06/14/25 00:30 AST 19 U/L (0-40) 06/14/25 00:30 ALT 22 U/L (0-41) 06/14/25 00:30 Alkaline Phosphatase 81 U/L (40-130) 06/14/25 00:30 Troponin T Baseline 26 ng/L (0-15) H 06/14/25 00:30 Troponin T 120 Minute 23.97 ng/L (0-15) H 06/14/25 02:29 Delta Troponin T -2.03 ABS# (0-10) L 06/14/25 02:29 NT-Pro-B Natriuret Pep 495 pg/mL (0-125) H 06/14/25 00:30 Total Protein 6.2 g/dL (6.6-8.7) L 06/14/25 00:30 Albumin 3.6 g/dL (3.5-5.2) 06/14/25 00:30 Globulin 2.6 g/dL (1.3-4.6) 06/14/25 00:30 Lipase 32 U/L (13-60) 06/14/25 00:30 All radiology interpretation(s) finalized by discharge Discharge Plan Discharge Patient Disposition: Home Clinical Impression: Chest pain Condition: Stable Prescriptions: No Action (DME) Unifine SafeControl Pen Needle 30 gauge x 5/16 needle See Rx Instructions .ROUTE .MEDSUPPLY Qty: 100 Rx Instructions: As directed sertraline 50 mg tablet 50 mg PO levothyroxine 88 mcg tablet PO chlorthalidone 50 mg tablet PO lisinopril 10 mg tablet 10 mg PO zolpidem 5 mg tablet 5 mg PO (DME) Diabetic Shoes with 3 set of inserts See Rx Instructions .Route .MEDSUPPLY Qty: 1 0RF Rx Instructions: As directed BY HOME tizanidine [Zanaflex] 4 mg Tablet 4 mg PO TID@08,14,18 loratadine [Claritin] 10 mg Tablet 10 mg PO DAILY@07 acetaminophen 325 mg Tablet 650 mg PO Q6H MDD pain loperamide 2 mg Tablet 2 mg PO Q2H PRN (Reason: Diarrhea) alum-mag hydroxide-simeth [Mylanta Maximum Strength] 400-400-40 mg/5 mL Suspension 10 ml PO Q6H PRN (Reason: upset stomach) gabapentin 600 mg tablet 600 mg PO QID Narcan 0.4 mg/mL Solution 0.4 mg SUBCUT Q2M PRN (Reason: overdose) Rx Instructions: NTExceed 10 mg total dose/episode Aspir-81 81 mg Tablet,Delayed Release (Dr/Ec) 81 mg PO DAILY famotidine 20 mg tablet 20 mg PO BID insulin aspart U-100 [Novolog U-100 Insulin aspart] 100 unit/mL solution See Rx Instructions .ROUTE .COMPLEX Rx Instructions: 18 unit subcutaneously with meals and per sliding scale: bs 130-149= 0 units, 150-199= 2 units, 200-249= 4 units, 250-299=6 units, 300-349=8 units, 350-399=10 units,notify physician vocational counselor, 400+=12 units. notify physician vocational counselor omeprazole 20 mg Capsule,Delayed Release(Dr/Ec) 20 mg PO QAM topiramate 100 mg tablet 100 mg PO BID losartan 100 mg tablet 100 mg PO QAM glipizide 5 mg tablet 5 mg PO BID Tresiba FlexTouch U-100 100 unit/mL (3 mL) insulin pen 60 unit SUBCUT BEDTIME Santyl 250 unit/gram ointment See Rx Instructions .ROUTE .COMPLEX Rx Instructions: Apply topically to yellow tissue to right foot every day Discharge Orders: Discharge ED (Routine); Ordered 06/14/25 Ordered By: Heath Baugh Referrals: Pranav Adams MD [Primary Care Provider, Family Practice] - 1-3 days Patient Instructions: Chest Pain (ED), Opioid Safety, Pain Management, Patient Portal & [place] Instructions Activity Restrictions/Additional Instructions: X-ray, EKG, and lab testing did not reveal a specific cause of your chest pain this morning. Return for worsening chest discomfort, development of shortness of breath, vomiting, other concerning symptoms. Call your doctor on Monday for follow-up appointment. Further outpatient testing may be needed. Print Language: Gibralt[place] Coding Level of Care Code ED Wharf Laborer for Chg Fwd Heart Score HEART Score Components History: Slightly Suspicous EKG: Normal Age: 45-64 yrs Risk Factors: 1 or 2 Risk Factors Troponin: Baseline Trop 16-45 ng/L HEART Score RESULT HEART Score: 3
[2025-06-14 04:49] VITALS: RESP 16
[2025-06-14] MEDS: fentaNYL 50 mcg/mL INJ 2mL IVP (04:49)
[2025-06-14 05:14] VITALS: BP 108/62; PULSE 85; RESP 16; O2SAT 97
== END 2025-06-14 05:15 | disposition home or self-care (01) ==
PROVIDERS: Emergency Provider Emergency Medicine; PCP Family Medicine
DX: R07.9 Chest pain, unspecified (principal); Z79.82 Long term (current) use of aspirin; Z86.73 Personal history of transient ischemic attack (TIA), and cerebral infarction without residual deficits
CPT/HCPCS: 36415; 71045; 80053; 83690; 83880; 84484; 85025; 93005; 96374; 96375; 96376; 99285; J1885; J2405; J3010; J9999

== ENCOUNTER 2025-06-29 01:21 | Emergency (ER) | payer MEDICARE, MEDICAID, SELFPAY ==
--- NOTE | 2025-06-29 01:26 | ED_ITS ---
HPI - General Adult 2 General: Chief complaint: Recheck/Abnormal Lab/Rx Stated complaint: HIGH BLOOD SUGAR Time Seen by Provider: 06/29/25 01:21 Source: patient and EMS Mode of arrival: EMS Limitations: no limitations History of Present Illness: 54-year-old male here from [facility] for hypoglycemia. Per EMS patient had drank a case of Mountain Dew today and his blood sugar had been running high there. They did give him insulin EMS states his blood sugar is now 450 he denies any vomiting denies any fevers denies any pain Related Data Home Medications ?Medication ?Instructions ?Recorded ?Confirmed acetaminophen 325 mg tablet 650 mg PO Q6H y 02/22/21 0 02/13/24 aluminum-mag hydroxide-simethicone 10 ml PO Q6H PRN up set stomach 02/22/21 02/13/24 400 mg-400 mg-40 mg/5 mL oral susp (Mylanta Maximum Strength) loperamide 2 mg tablet 2 mg PO Q2H PRN Diarrhea 02/13/24 loratadine 10 mg tablet (Claritin) 10 mg PO DAILY@07 0 02/22/21 02/13/24 tizanidine 4 mg tablet (Zanaflex) 4 mg PO TID@08,14,18 02/22/21 02/13/24 pen needle,diabetic dual safty 30 #100 ea 06/13/2301/02 gauge x 5/16 (Unifine SafeControl Pen Needle) aspirin 81 mg tablet,delayed 81 mg PO DAILY 07/03/23 0 02/13/24 release collagenase clostridium histo. 250 See Rx Instructions .Route .COMPLEX 07/03/23 02/13/24 unit/gram topical ointment (Santyl) famotidine 20 mg tablet 20 mg PO BID 07/03/23 gabapentin 600 mg tablet 600 mg PO QID 07/03/2302/12 glipizide 5 mg tablet 5 mg PO BID 07/03/23 4 insulin aspart U-100 100 unit/mL See Rx Instructions . Route .COMPLEX 07/03/23 02/13/24 subcutaneous solution (Novolog U-100 Insulin aspart) insulin degludec 100 unit/mL (3 60 unit SUBCUT BEDTIME 07/03/23 02/13/24 mL) subcutaneous pen (Tresiba FlexTouch U-100 insulin) losartan 100 mg tablet 100 mg PO QAM 07/03/2302/12 naloxone 0.4 mg/mL injection 0.4 mg SUBCUT Q2M PRN ove rdose 07/03/23 02/13/24 solution omeprazole 20 mg capsule,delayed 20 mg PO QAM 07/03/23 02/13/24 release topiramate 100 mg tablet 100 mg PO BID 07/03/2302/12 chlorthalidone 50 mg tablet mg PO 02/13/24 02/13/24 levothyroxine 88 mcg tablet mcg PO 02/13/24 02/13/24 lisinopril 10 mg tablet 10 mg PO 02/13/24 02/13/24 sertraline 50 mg tablet 50 mg PO 02/13/24 02/13/24 zolpidem 5 mg tablet 5 mg PO 02/13/24 02/13/24 Previous Rx's ?Medication ?Instructions ?Recorded Diabetic Shoes with 3 set of #1 ea 11/20/23 inserts Allergies Allergy/AdvReac Type Severity Reaction Status Date / Time morphine Allergy Unknown Verified 02/13/24 09:26 Physical Exam 2 Const: COMMON NORMALS: no acute distress and healthy appearing HENMT: COMMON NORMALS: normocephalic and atraumatic HEAD & SCALP: n ormocephalic and atraumatic Eye: COMMON NORMALS: Equal, round and reactive pupils present and EOMs intact bilaterally PUPIL: Yes Equal, round and reactive pupils present Neck/C-Spine: COMMON NORMALS: full ROM and supple Chest: COMMONS NORMALS: normal inspection of the chest and normal palpation of entire chest wall Resp: COMMON NORMALS: normal respiratory effort, No retractions, No use of accessory muscles and clear to auscultation bilaterally AUSCULTATION: clear to auscultation bilaterally Cardio: COMMON NORMALS: regular rate, regular rhythm and No murmurs present (Cardio) RATE: regular rate RHYTHM: regular rhythm GI: COMMON NORMALS: Normal to inspection, nondistended, normoactive bowel sounds present, Soft to palpation, non-tender and no masses PALPATION: Yes Soft to palpation Extremity: COMMON NORMALS: normal to inspection and full ROM Neuro: COMMON NORMALS: moves all extremities and no focal motor deficits Psych: COMMON NORMALS: mental status grossly normal, Normal thought process present and cooperative THOUGHT PROCESS: Normal thought process present Skin: COMMON NORMALS: no rashes or lesions noted and no wounds GENERAL SKIN EXAM: no rashes or lesions noted Course 2 Vital Signs: Vital signs: Vital Signs Temperature 98.2 F 06/29/25 01:27 Pulse Rate 75 06/29/25 01:43 Respiratory Rate 17 06/29/25 01:27 Blood Pressure 120/69 06/29/25 01:43 Pulse Oximetry 99 06/29/25 01:43 Oxygen Delivery Me thod Room Air 06/29/25 01:43 MDM - General Adult Medical Decision Making Patient presents here with hyperglycemia differential includes DKA has no anion gap no signs of DKA. His blood sugars been coming down here he is well- appearing here with normal vital signs he is stable for discharge back to the [facility] at this time. Did review labs that showed no acute abnormality besides hyperglycemia Medical Records I reviewed the patient's medical records. Lab Data I reviewed the patient's lab results. 06/29/25 00:30 06/29/25 00:30 Laboratory Results WBC 7.87 10^3/uL (3.29-11.43) 06/29/25 00:30 RBC 3.56 10^6/uL (3.85-5.65) L 06/29/25 00:30 Hgb 10.70 g/dL (11.27-16.99) L 06/29/25 00:30 Hct 32.6 % (37-53) L 06/29/25 00:30 MCV 91.6 fl (82-101) 06/29/25 00:30 MCH 30.1 pg (27-33) 06/29/25 00:30 MCHC 32.8 g/dL (30-55) 06/29/25 00:30 RDW 12.6 % (12.1-15.1) 06/29/25 00:30 Plt Count 302 10^3/cmm (157-399) 06/29/25 00:30 MPV 9.1 fL (7.4-10.4) 06/29/25 00:30 Neut % (Auto) 61.0 % 06/29/25 00:30 Lymph % (Auto) 23.1 % 06/29/25 00:30 [place] % (Auto) 11.3 % 06/29/25 00:30 Eos % (Auto) 2.9 % 06/29/25 00:30 Baso % (Auto) 0.6 % 06/29/25 00:30 Neut # (Auto) 4.79 10^3/uL (1.8-7.7) 06/29/25 00:30 Lymph # (Auto) 1.8 10^3/uL (0.8-4.8) 06/29/25 00:30 [place] # (Auto) 0.9 10^3/uL (0.2-0.9) 06/29/25 00:30 Eos # (Auto) 0.2 10^3/uL (0.0-0.8) 06/29/25 00:30 Baso # (Auto) 0.1 10^3/uL (0.0-0.1) 06/29/25 00:30 Nucleated RBC % (auto) 0 % 06/29/25 00: Nucleated RBCs # 0.0 /100WBC 06/29/25 00:30 Sodium 128 mmol/L (136-145) L 06/29/25 00:30 Potassium 3.8 mmol/L (3.5-5.1) 06/29/25 00:30 Chloride 92 mmol/L (98-107) L 06/29/25 00: Carbon Dioxide 23 mmol/L (22-29) 06/29/25 00:30 Anion Gap 16.8 (5-19) 06/29/25 00:30 BUN 36 mg/dL (6-20) H 06/29/25 00: Creatinine 1.5 mg/dL (0.7-1.2) H 06/29/25 00:30 GFR Calculation 48.4 mL/min (90-130) L 06/29/25 00:30 Glucose 472 mg/dL (65-115) H 06/29/25 00:30 Calculated Osmolality 295 mOsm/kg (285-295) 06/29/25 00: Calcium 9.8 mg/dL (8.5-10.5) 06/29/25 00:30 Total Bilirubin 0.3 mg/dL (0.15-1.2) 06/29/25 00: AST 20 U/L (0-40) 06/29/25 00:30 ALT 32 U/L (0-41) 06/29/25 00:30 Alkaline Phosphatase 91 U/L (40-130) 06/29/25 00:30 Total Protein 7.4 g/dL (6.6-8.7) 06/29/25 00:30 Albumin 4.0 g/dL (3.5-5.2) 06/29/25 00:30 Globulin 3.4 g/dL (1.3-4.6) 06/29/25 00:30 No radiology studies performed this visit Discharge Plan Discharge Patient Disposition: Home Clinical Impression: Hyperglycemia Condition: Stable Prescriptions: No Action (DME) Unifine SafeControl Pen Needle 30 gauge x 5/16 needle See Rx Instructions .ROUTE .MEDSUPPLY Qty: 100 Rx Instructions: As directed sertraline 50 mg tablet 50 mg PO levothyroxine 88 mcg tablet PO chlorthalidone 50 mg tablet PO lisinopril 10 mg tablet 10 mg PO zolpidem 5 mg tablet 5 mg PO (DME) Diabetic Shoes with 3 set of inserts See Rx Instructions .Route .MEDSUPPLY Qty: 1 0RF Rx Instructions: As directed BY HOME tizanidine [Zanaflex] 4 mg Tablet 4 mg PO TID@08,14,18 loratadine [Claritin] 10 mg Tablet 10 mg PO DAILY@07 acetaminophen 325 mg Tablet 650 mg PO Q6H MDD pain loperamide 2 mg Tablet 2 mg PO Q2H PRN (Reason: Diarrhea) alum-mag hydroxide-simeth [Mylanta Maximum Strength] 400-400-40 mg/5 mL Suspension 10 ml PO Q6H PRN (Reason: upset stomach) gabapentin 600 mg tablet 600 mg PO QID Narcan 0.4 mg/mL Solution 0.4 mg SUBCUT Q2M PRN (Reason: overdose) Rx Instructions: NTExceed 10 mg total dose/episode Aspir-81 81 mg Tablet,Delayed Release (Dr/Ec) 81 mg PO DAILY famotidine 20 mg tablet 20 mg PO BID insulin aspart U-100 [Novolog U-100 Insulin aspart] 100 unit/mL solution See Rx Instructions .ROUTE .COMPLEX Rx Instructions: 18 unit subcutaneously with meals and per sliding scale: bs 130-149= 0 units, 150-199= 2 units, 200-249= 4 units, 250-299=6 units, 300-349=8 units, 350-399=10 units,notify physician prescription benefit specialist, 400+=12 units. notify physician prescription benefit specialist omeprazole 20 mg Capsule,Delayed Release(Dr/Ec) 20 mg PO QAM topiramate 100 mg tablet 100 mg PO BID losartan 100 mg tablet 100 mg PO QAM glipizide 5 mg tablet 5 mg PO BID Tresiba FlexTouch U-100 100 unit/mL (3 mL) insulin pen 60 unit SUBCUT BEDTIME Santyl 250 unit/gram ointment See Rx Instructions .ROUTE .COMPLEX Rx Instructions: Apply topically to yellow tissue to right foot every day Discharge Orders: Discharge ED (Routine); Ordered 06/29/25 Ordered By: Caprice Amin Referrals: Pranav Adams MD [Primary Care Provider, [facility]] - 4-7 days Discharge Diet: Advance as tolerated Discharge Activity: Resume usual activity Patient Instructions: Diabetic Hyperglycemia (ED) Print Language: Macanese Coding Level of Care Code ED [employer] Senior Officer for Dahlia Edmondson
[2025-06-29 01:27] VITALS: BP 120/69; PULSE 76; RESP 17; TEMP 36.8; O2SAT 96; BMI 44.3
--- OUTSIDE RECORDS SUMMARY | 2025-06-29 01:29 | XMS_ITS | Clinical Summary ---
Author Organization [facility] Address [address] [place] [address] Care Team Providers Care Manager Van Name Role Phone Pranav Adams MD Primary Care Provider Allergies Active Allergy Reactions Criticality Noted Date Comments Morphine Unknown 08/17/2022 Morphine Sulfate Unknown Medications gabapentin (NEURONTIN) 300 mg capsule Take 300 mg by mouth in the morning and 300 mg in the evening. 0 Active levothyroxine (SYNTHROID) 50 MCG tablet Take 50 mcg by mouth every morning before breakfast. 0 Active pantoprazole (PROTONIX) 20 MG EC tablet Take 20 mg by mouth every morning before breakfast. 0 Active risperiDONE (RISPERDAL) 3 MG tablet Take 3 mg by mouth nightly. 0 Active JANUVIA 50 mg tablet Take 50 mg by mouth in the morning. 0 Active tiZANidine (ZANAFLEX) 4 MG tablet Take 4 mg by mouth in the morning and 4 mg at noon and 4 mg in the evening. 0 Active topiramate (TOPAMAX) 50 MG tablet Take 50 mg by mouth in the morning and 50 mg at noon and 50 mg in the evening. 0 Active traZODone (DESYREL) 100 MG tablet Take 200 mg by mouth nightly. 0 Active ferrous sulfate 325 mg (65 mg [...] mg as needed in the evening for constipation . 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 2 mL 1 5 Active insulin degludec (TRESIBA) 100 unit/mL (3 mL) subcutaneous penIndications:Ty pe 2 diabetes mellitus with diabetic polyneuropathy, with long-term current use of insulin (HCC) 65 units every morning and every evening 5 Active cephalexin (KEFLEX) 500 mg capsuleIndication s:Cellulitis of left lower extremity Take 1 capsule (500 mg total) by mouth in the morning and 1 capsule (500 mg total) in the evening. Do all this for 10 days. 20 capsule 5 06/01/20 25 Active Problems Problem Noted Date Diagnosed Date [...] Date Type Department Care Team Description 05/20/2025 [facility] [address] [place] [address] Parish Mays LPN Type 2 diabetes mellitus [...] Sign Reading Time Taken Comments Blood Pressure 108/62 06/23/2025 10:57 AM CDT Pulse 76 06/23/2025 10:57 AM CDT Temperature 36.2 C (97.2 F) 06/23/2025 10:57 AM CDT Respiratory Rate 20 06/23/2025 10:57 AM CDT Oxygen Saturation 97% 06/23/2025 10:57 AM CDT Inhaled Oxygen Concentration - - Weight 128 kg (281 lb 6.4 oz) 06/23/2025 10:57 A M CDT Height 162.6 cm (5' 4 ) 06/23/2025 10:57 AM CDT Body Mass Index 48.3 06/23/2025 10:57 AM CDT Plan of Treatment Health Maintenance Due Date Last Done Comments Foot Exam 1968 Hemoglobin A1C 1968 Ophthalmology Exam 1978 Urine Microalbumin 1978 Hepatitis B Vaccines (1 of 3 - 19+ 3-dose series) 12/10/1987 Pneumococcal Vaccine: 50+ Years (1 of 2 - PCV) 12/10/1987 Td, Tdap Vaccines Adult 12/10/1987 Colonoscopy 2013 Shingrix (ZOSTER RECOMBINANT) (1 of 2) 2018 COVID-19 Vaccine (2024- season) 2025 12/05/2024, 10/06/2023, 04/20/2023, Additional history exists Medicare Annual Wellness 02/14/2026 025, 12/01/2023, 12/01/2023, Additional history exists Influenza Vaccination Completed 06/11/2025 , 07/03/2024, 07/31/2023, Additional history exists HIB Vaccines Aged Out [...] this topic Medical Devices Implanted Type Area Angle Shearer Device Identifier Shelf Expiration Date Model / Serial / Lot Vivigen 5cc Cellular Bone Matrix Formable - [id number] - [id number] Implanted:Qty: 1 on 02/11/2020 by Praful Zamarripa MD at [facility] IMPLANT Left: Arm LIFENET 07/14/2020 BL-1600-00 2 / [id number] / Screw Lock Slf/Tping 44mm Sd - [id number] Implanted:Qty: 1 on 02/11/2020 by Praful Zamarripa MD at [facility] Left: Arm SYNTHES 212.134 / / Sp Screw Lock Slf/Tpng 30mm Sd - [id number] Implanted:Qty: 2 on 02/11/2020 by Praful Zamarripa MD at [facility] Left: Arm SYNTHES 212.111 / / Screw Locking Self Tapping 32mm [address] Recess - [id number] Implanted:Qty: 1 on 02/11/2020 by Praful Zamarripa MD at [facility] Left: Arm SYNTHES 212.112 / / Screw Slf/Tpng 3.5x42mm - [id number] Implanted:Qty: 1 on 02/11/2020 by Praful Zamarripa MD at [facility] Left: Arm SYNTHES 204.842 / / Plate Lcp Proximal Humerus 6 Hole 114mm - [id number] Implanted:Qty: 1 on 02/11/2020 by Praful Zamarripa MD at [facility] Left: Arm SYNTHES 241.903 / / Sp Screw Lock Slf/Tpng 36mm Sd - [id number] Implanted:Qty: 1 on 02/11/2020 by Praful Zamarripa MD at [facility] Left: Arm SYNTHES 212.115 / / Screw Lock Self Tapping 38mm Star Driven - [id number] Implanted:Qty: 2 on 02/11/2020 by Praful Zamarripa MD at [facility] Left: Arm SYNTHES 212.116 / / Sp Screw Lock Slf/Tpng 40mm Sd - [id number] Implanted:Qty: 1 on 02/11/2020 by Praful Zamarripa MD at [facility] Left: Arm SYNTHES 212.117 / / Screw Locking Self Tapping 50mm - [id number] Implanted:Qty: 2 on 02/11/2020 by Praful Zamarripa MD at [facility] Left: Arm SYNTHES 212.121 / / Insurance [facility] Care Teams Manager Van Relationship Specialty Start Date End Date Pranav Adams MD [address] [place] [address] PCP - General Family Medicine 08/09/22
--- OUTSIDE RECORDS SUMMARY | 2025-06-29 01:29 | XMS_ITS | Encounter Summary ---
Author Organization [facility] Address [address] [facility] [address] Care Team Providers Care Cap Parts Cutter Name Role Phone Pranav Adams MD Primary Care Provider Encounter Details Date Type Department Care Team (Late st Contact Info) Description 01/30/2020 Telephone [facility] [address] [place], [place] [address] Gabrielle Joyce, RN Social History Tobacco Use [...] PM CDT Spoke with Taylor Arana at [facility]. Completed education to Taylor for patient for [...] patient is ready to be discharged, the pedicab driver will be called to pick the patient up at Entrance #4. documented in this encounter Plan of Treatment Not on file documented as of this encounter Visit Diagnoses [...] documented as of this encounter Care Teams Cap Parts Cutter Relationship Specialty Start Date End Date Pranav Adams MD [address] [place] [address] PCP - General Family Medicine 08/09/22 documented as of this encounter
--- OUTSIDE RECORDS SUMMARY | 2025-06-29 01:29 | XMS_ITS | Clinical Summary ---
Author Organization [facility] iew Address [address] [place] [address] Phone Care Team Providers Care Crew Person Name Role Phone Unavailable Primary Care Provider [...] 12/05/2024, , 04/20/2023, Additional history exists Insurance MEDICAID [place] MED[place] PART A AND B
--- OUTSIDE RECORDS SUMMARY | 2025-06-29 01:29 | XMS_ITS | Clinical Summary ---
Author Organization [facility] ie Address [address] [place] [address] Phone Care Team Providers Care Sap Analyst Name Role Phone Unavailable Primary Care Provider [...]
--- OUTSIDE RECORDS SUMMARY | 2025-06-29 01:29 | XMS_ITS | Encounter Summary ---
Author Organization [facility] Address [address] [place] [address] Care Team Providers Care Parts Counter Associate Name Role Phone Pranav Adams MD Primary Care Provider Encounter Details Date Type Department Care Team (Late st Contact Info) Description 01/21/2020 Orders Only [facility] [address] [place] [id number] Praful Zamarripa MD Social History Tobacco Use [...] as of this encounter Plan of Treatment Not on [...] documented as of this encounter Care Teams Parts Counter Associate Relationship Specialty Start Date End Date Pranav Adams MD [address] [place] [address] PCP - General Family Medicine 08/09/22 documented as of this encounter
[2025-06-29 01:31] LABS: Hematocrit 32.6 % (37-53); Hemoglobin 10.70 g/dL (11.27-16.99); Mean Corpuscular HGB Conc 32.8 g/dL (30-55); Mean Corpuscular Hemoglobin 30.1 pg (27-33); Mean Corpuscular Volume 91.6 fl (82-101); Nucleated Red Blood Cells % 0 %; Platelet Count 302 10^3/cmm (157-399); Red Blood Count 3.56 10^6/uL (3.85-5.65); White Blood Count 7.87 10^3/uL (3.29-11.43)
[2025-06-29 01:43] VITALS: BP 120/69; PULSE 75; O2SAT 99
[2025-06-29 01:54] LABS: Alanine Aminotransferase 32 U/L (0-41); Albumin Level 4.0 g/dL (3.5-5.2); Alkaline Phosphatase 91 U/L (40-130); Anion Gap 16.8 (5-19); Aspartate Amino Transferase 20 U/L (0-40); Blood Urea Nitrogen 36 mg/dL (6-20); Calcium 9.8 mg/dL (8.5-10.5); Carbon Dioxide 23 mmol/L (22-29); Chloride 92 mmol/L (98-107); Globulin 3.4 g/dL (1.3-4.6); Glucose 472 mg/dL (65-115); Osmolality Calculated 295 mOsm/kg (285-295); Potassium 3.8 mmol/L (3.5-5.1); Sodium 128 mmol/L (136-145); Total Protein 7.4 g/dL (6.6-8.7)
[2025-06-29 01:59] LABS: Creatinine Clr Calc Pharmacy 75.3287
[2025-06-29 02:41] VITALS: BP 124/78; PULSE 72; O2SAT 98
[2025-06-29 03:53] VITALS: BP 112/66; PULSE 94; O2SAT 96
[2025-06-29 05:12] VITALS: PULSE 77; RESP 16; O2SAT 96
[2025-06-29 05:32] VITALS: BP 132/74; PULSE 77; RESP 16; O2SAT 96
== END 2025-06-29 05:35 | disposition home or self-care (01) ==
PROVIDERS: Emergency Provider Emergency Medicine; PCP Family Medicine
DX: R73.9 Hyperglycemia, unspecified (principal); Z79.4 Long term (current) use of insulin
CPT/HCPCS: 36416; 80053; 82962; 85025; 96360; 99284; J7030